=== PATIENT | female | born 1935 | race Caucasian/White ===

== ENCOUNTER 2020-04-20 17:10 | Emergency (ER) | payer MEDICARE, MEDICAID, SELFPAY ==
[2020-04-20 17:21] VITALS: BMI 29.5
--- NOTE | 2020-04-20 17:24 | W.ED.NEUROSD ---
HPI - Neuro Symptoms/Deficit General: Chief Complaint: Neuro Symptoms/Deficit Stated Complaint: CANT TALK RIGHT , SOB Time Seen by Provider: 04/20/20 17:24 History of Present Illness: HPI Narrative: 84-year-old female presents to the ER from group home with slurred speech she woke up with it this morning. They observed it throughout the day did not seem to be getting better so this evening they decided to send her around. She is also been somewhat short of breath and she is usually not really wearing oxygen at home but is requiring oxygen to get her sats from the upper 80s when she first arrived. Daughter reports she also fell a few days ago landed on her knees she has an abrasion on her left knee seen her PCP yesterday had x-rays done which were negative. She has had a slight productive cough with no fever she has some mild orthopnea as well. She is a DNR arm and reports she has a cerebral aneurysm. Onset (ago): unknown Timing confirmed by: family member Location: speech History of same: No Severity: moderate Relieving factors: none Exacerbating factors: none Context: sudden onset (Woke up with symptoms) On Anticoagulants: No Associated symptoms: Reports cough and short of breath; Deny chest pain, malaise, nausea or vomiting Treatments Prior to Arrival: none Review of Systems Const: Denies: fever(s), chills, body aches, change in appetite, fatigue or malaise ENMT: Denies: throat pain, ear or mastoid pain, nasal discharge or nasal congestion Card: Denies: chest pain, edema, dyspnea on exertion or orthopnea Resp: Denies: dyspnea, productive cough or non-productive cough GI: Denies: abdominal pain, nausea, vomiting, hematemesis, coffee ground emesis, diarrhea, constipation, bloating, hematochezia or melena : Denies: flank pain, difficulty voiding, dysuria, urinary frequency or urinary urgency Skin/Breast: Denies: rash or pruritus PFSH ED PFSH: Medical History CHF (congestive heart failure) Dyslipidemia Essential hypertension Statin intolerance TIA (transient ischemic attack) Family History Daughter Diabetes Father Cancer Mother Cancer Other CAD (coronary artery disease) Hypertension Stroke Social History Smoking and tobacco status: never smoked Household members: spouse Marital status: NIH stroke score NIHSS: Level Of Consciousness - 1a: 1 Level Of Consciousness Questions - 1b: One Correct Level Of Consciousness Commands - 1c: Both Correct Best Gaze - 2: Normal Visual Gomez - 3: No Visual Loss Facial Palsy - 4: Minor Paralysis Motor Arm Right - 5: No Drift Motor Arm Left - 5: No Drift Motor Leg Right - 6: No Drift Motor Leg Left - 6: No Drift Limb Ataxia - 7: Absent Sensory - 8: Normal Best Language - 9: Mild/Moderate Aphasia Dysarthia - 10: Mild/Moderate Dysarthia Extinction And Inattention - 11: 0 Score: Total Score: 5 Physical Exam Const: COMMON NORMALS: no acute distress GENERAL APPEARANCE: cooperative and comfortable ORIENTATION/CONSCIOUSNESS: Yes awake, Yes oriented to person, Yes oriented to place and Yes oriented to time HENMT: COMMON NORMALS: normocephalic, atraumatic, hearing grossly normal bilaterally, external ears normal, EAC's normal, TM's normal bilaterally, Normal nasal mucous membranes and turbinates present, moist oral mucous membranes and oropharynx normal HEAD & SCALP: normocephalic and atraumatic NOSE: Normal nasal mucous membranes and turbinates present EXTERNAL EAR: Yes external ears normal EXTERNAL AUDITORY CANAL: EAC's normal TYMPANIC MEMBRANE: TM's normal bilaterally Eye: COMMON NORMALS: Equal, round and reactive pupils present, EOMs intact bilaterally, conjunctivae normal and no scleral icterus CONJUNCTIVA: Yes conjunctivae normal PUPIL: Yes Equal, round and reactive pupils present Neck/C-Spine: COMMON NORMALS: full ROM, no lymphadenopathy, supple and no JVD Lymph: LYMPHATIC: no lymphadenopathy noted and no lymphedema noted Resp: COMMON NORMALS: normal respiratory effort, No retractions, No use of accessory muscles and clear to auscultation bilaterally AUSCULTATION: clear to auscultation bilaterally Cardio: COMMON NORMALS: no JVD, regular rate, regular rhythm and No murmurs present (Cardio) RATE: regular rate RHYTHM: regular rhythm GI: COMMON NORMALS: Soft to palpation and No hepatosplenomegaly present AUSCULTATION: Yes normoactive bowel sounds PALPATION: Yes Soft to palpation, No Tenderness to palpation present (GI), No Guarding due to palpation present (GI) and Yes No hepatosplenomegaly present Extremity: COMMON NORMALS: normal to inspection, capillary refill normal, no clubbing, cyanosis or edema, no calf tenderness and no pedal edema Neuro: SENSORIUM/ORIENTATION: Yes oriented to person, Yes oriented to place and Yes oriented to time Skin: COMMON NORMALS: no rashes or lesions noted GENERAL SKIN EXAM: no rashes or lesions noted Course Vital Signs: Vital signs: Vital Signs Temperature 98.6 F 04/20/20 17:25 Pulse Rate 76 04/20/20 20:51 Respiratory Rate 14 04/20/20 20:51 Blood Pressure 128/65 04/20/20 20:51 Pulse Oximetry 93 04/20/20 20:51 MDM - Neuro Symptoms/Deficit MDM Narrative: Medical decision making narrative: She is far outside of the range of any thrombolytic she has a aneurysm in her brain it was discovered previously and does not wish to do any kind of intervention. She is actually getting a little bit better after discussion with the family will go ahead and discharge her back to the group home with just aspirin daily no other changes. No further changes in her antihypertensive regimen either at this time. Lab Data: Labs: Lab Results 04/20/20 04/20/20 04/20/20 Range/Units 17:58 17:58 18:18 WBC 4.9 (4.0-10.0) 10^3/ uL RBC 3.21 L (4.1-5.3) 10^6/u L Hgb 10.3 L (11.5-15.3) g/dL Hct 33.3 L (37.0-47.0) % MCV 103.7 H (81-99) fL MCH 32.1 (28.0-34.0) pg MCHC 30.9 (30.0-36.0) g/dL RDW 13.2 (12.1-15.1) % Plt Count 151 (130-400) 10^3/c mm MPV 10.7 H (7.4-10.4) fL Neut % (Auto) 72.0 % Lymph % (Auto) 8.8 % [place] % (Auto) 13.9 % Eos % (Auto) 4.7 % Baso % (Auto) 0.2 % Neut # (Auto) 3.51 (1.8-7.7) 10^3/u L Lymph # (Auto) 0.4 L (0.8-4.8) 10^3/u L [place] # (Auto) 0.7 (0.2-0.9) 10^3/u L Eos # (Auto) 0.2 (0.0-0.8) 10^3/u L Baso # (Auto) 0.0 (0.0-0.1) 10^3/u L Nucleated RBC % (a uto) 0 % Nucleated RBCs # 0.0 /100WBC Specimen Type Arterial Sample Site Radial, right ABG pH 7.41 (7.35-7.45) ABG pCO2 45.9 H (35-45) mmHg ABG pO2 76.3 L (80.0-100.0) mmH g ABG HCO3 29.0 H (22-26) mmol/L ABG O2 Saturation 96.1 ABG Base Excess 3.7 H (-2.0-2.0) mmol/ L Nasir Test Pos A-a O2 Gradient 64.6 H (5-10) mmHg Hematocrit 31.9 L (37-47) % Hgb O2 Saturation 94.4 L (95-100) % Carboxyhemoglobin 1.7 (0.4-20.1) %THgb Methemoglobin 0.1 L (0.4-1.5) % Total Hemoglobin 10.4 L (12-16) g/dL Ionized Calcium 1.2 (1.1-1.4) mmol/L O2 Delivery Device Nc O2 Liters/Min 2.0 % FiO2 28.0 % Inspector [employer] ID ed Sodium 133 L 135.0 (136-145) mmol/L Potassium 3.7 3.7 (3.5-5.1) mmol/L Chloride 96 L (98-107) mmol/L Carbon Dioxide 29 (22-29) mmol/L Anion Gap 11.7 (5-19) BUN 19 (8-23) mg/dL Creatinine 0.9 (0.5-0.9) mg/dL Glucose 91 92.0 (65-115) mg/dL Calculated Osmolal ity 272 L (285-295) mOsm/k g Calcium 8.4 L (8.5-10.5) mg/dL Total Bilirubin 0.6 (0.15-1.2) mg/dL AST 10 (0-32) U/L ALT 8 (0-33) U/L Alkaline Phosphata se 66 (35-105) IU/L NT-Pro-B Natriuret Pep 1060 H (0-450) pg/mL Total Protein 5.8 L (6.6-8.7) g/dL Albumin 3.6 (3.5-5.2) g/dL Globulin 2.2 (1.3-4.6) g/dL Urine Color (Yellow) Urine Appearance (CLEAR) Urine pH (5-7) Ur Specific Gravit y (1.005-1.030) Urine Protein (Negative) Urine Glucose (UA) (Normal) Urine Ketones (Negative) Urine Blood (Negative) Urine Nitrate (Negative) Urine Bilirubin (NEGATIVE) Urine Urobilinogen (Negative) mg/dL Ur Leukocyte Heena ase (Negative) 04/20/20 Range/Units 19:57 WBC (4.0-10.0) 10^3/ uL RBC (4.1-5.3) 10^6/u L Hgb (11.5-15.3) g/dL Hct (37.0-47.0) % MCV (81-99) fL MCH (28.0-34.0) pg MCHC (30.0-36.0) g/dL RDW (12.1-15.1) % Plt Count (130-400) 10^3/c mm MPV (7.4-10.4) fL Neut % (Auto) % Lymph % (Auto) % [place] % (Auto) % Eos % (Auto) % Baso % (Auto) % Neut # (Auto) (1.8-7.7) 10^3/u L Lymph # (Auto) (0.8-4.8) 10^3/u L [place] # (Auto) (0.2-0.9) 10^3/u L Eos # (Auto) (0.0-0.8) 10^3/u L Baso # (Auto) (0.0-0.1) 10^3/u L Nucleated RBC % (a uto) % Nucleated RBCs # /100WBC Specimen Type Sample Site ABG pH (7.35-7.45) ABG pCO2 (35-45) mmHg ABG pO2 (80.0-100.0) mmH g ABG HCO3 (22-26) mmol/L ABG O2 Saturation ABG Base Excess (-2.0-2.0) mmol/ L Nasir Test A-a O2 Gradient (5-10) mmHg Hematocrit (37-47) % Hgb O2 Saturation (95-100) % Carboxyhemoglobin (0.4-20.1) %THgb Methemoglobin (0.4-1.5) % Total Hemoglobin (12-16) g/dL Ionized Calcium (1.1-1.4) mmol/L O2 Delivery Device O2 Liters/Min % FiO2 % [employer] ID Sodium (136-145) mmol/L Potassium (3.5-5.1) mmol/L Chloride (98-107) mmol/L Carbon Dioxide (22-29) mmol/L Anion Gap (5-19) BUN (8-23) mg/dL Creatinine (0.5-0.9) mg/dL Glucose (65-115) mg/dL Calculated Osmolal ity (285-295) mOsm/k g Calcium (8.5-10.5) mg/dL Total Bilirubin (0.15-1.2) mg/dL AST (0-32) U/L ALT (0-33) U/L Alkaline Phosphata se (35-105) IU/L NT-Pro-B Natriuret Pep (0-450) pg/mL Total Protein (6.6-8.7) g/dL Albumin (3.5-5.2) g/dL Globulin (1.3-4.6) g/dL Urine Color Yellow (Yellow) Urine Appearance Clear (CLEAR) Urine pH 5 (5-7) Ur Specific Gravit y 1.015 (1.005-1.030) Urine Protein Neg (Negative) Urine Glucose (UA) Norm (Normal) Urine Ketones Negative (Negative) Urine Blood Neg (Negative) Urine Nitrate Negative (Negative) Urine Bilirubin Neg (NEGATIVE) Urine Urobilinogen 1 H (Negative) mg/dL Ur Leukocyte Heena ase Negative (Negative) Discharge Plan Discharge Patient Disposition: Home, Self-Care Clinical Impression: Essential hypertension, TIA (transient ischemic attack) Condition: Stable Prescriptions: No Action levothyroxine 137 mcg capsule 137 mcg PO QDAY RF: 0 terazosin 2 mg capsule 2 mg PO BID RF: 0 omega-3 fatty acids 1,000 mg capsule 1,000 mg PO BID RF: 0 docusate sodium [Colace] 100 mg capsule 100 mg PO BID RF: 0 hydrocodone-acetaminophen 5-325 mg tablet 1 tab PO Q8H PRNRF: 0 pantoprazole 40 mg tablet,delayed release (DR/EC) 40 mg PO QDAY RF: 0 duloxetine 60 mg capsule,delayed release(DR/EC) 60 mg PO QDAY RF: 0 aspirin [Adult Low Dose Aspirin] 81 mg tablet,delayed release (DR/EC) 81 mg PO QDAY RF: 0 tamsulosin 0.4 mg capsule 0.4 mg PO QDAY RF: 0 furosemide 20 mg tablet 20 mg PO .QOD RF: 0 trazodone 50 mg tablet 25 mg PO .HS RF: 0 lisinopril 10 mg tablet 10 mg PO DAILY Qty: 30 RF: 4 verapamil 240 mg capsule,ext rel. pellets 24 hr 240 mg PO BID 90 Days Qty: 180 RF: 3 Discharge Orders: Discharge Order (Routine); Ordered 04/20/20 Ordered By: Silver Fried Referrals: Zaki Garcia MD [Primary Care Provider] - Discharge Diet: Usual diet Discharge Activity: Resume usual activity Activity Restrictions/Additional Instructions: Decrease the amlodipine you have been taking at home to 5 mg daily. Follow-up with Dr. Garcia within the next week. If you have any worsening symptoms return to the emergency room. Discharge Date/Time: 04/20/20 20:53 Coding Level of Care Code ED Furniture Assembler for Lo Fwd Exam Comprehensive
[2020-04-20 17:25] VITALS: BP 134/69; PULSE 70; RESP 20; TEMP 37; O2SAT 88
--- NOTE | 2020-04-20 17:42 | XRR_ITS ---
PROCEDURE INFORMATION: Exam: XR Chest, 1 View Exam date and time: 04/20/2020 5:43 PM Age: 84 years old Clinical indication: Cough; Additional info: Dyspnea/cough TECHNIQUE: Imaging protocol: XR of the chest Views: 1 view. COMPARISON: [facility] Chest 2 views 03/23/2019 12:11 PM FINDINGS: Lungs: Unremarkable. No consolidation. Pleural space: Unremarkable. No pleural effusion. No pneumothorax. Heart/Mediastinum: Unremarkable. No cardiomegaly. Bones/joints: Unremarkable. XR/XR chest 1V portable [id number] IMPRESSION: No acute findings.
--- NOTE | 2020-04-20 17:42 | CTR_ITS ---
PROCEDURE INFORMATION: Exam: CT Head Without Contrast Exam date and time: 04/20/2020 6:14 PM Age: 84 years old Clinical indication: Altered mental status/memory loss; Additional info: CVA TECHNIQUE: Imaging protocol: Computed tomography of the head without contrast. Radiation optimization: All CT scans at this facility use at least one of these dose optimization techniques: automated exposure control; mA and/or kV adjustment per patient size (includes targeted exams where dose is matched to clinical indication); or iterative reconstruction. COMPARISON: CT head wo con* [id number] 02/13/2019 5:36 PM RADIATION DOSE METRICS: Total DLP (mGy-cm): 663.2 FINDINGS: Brain: There is volume loss and periventricular low density compatible with chronic small vessel disease changes. There is no acute hemorrhage, edema or mass effect. 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 Ventricles: Normal. No ventriculomegaly. Bones/joints: Unremarkable. No acute fracture. Sinuses: Visualized sinuses are unremarkable. No fluid levels. Mastoid air cells: Visualized mastoid air cells are well aerated. Soft tissues: Unremarkable. CT/CT head wo con* [id number] IMPRESSION: 1. 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 No acute hemorrhage. 2. No acute intracranial abnormality. Unchanged exam. Radiation Dose CTDIVOL = (mGy): DLP = 663.2 (mGy-cm)
--- NOTE | 2020-04-20 17:42 | ECG_ITS ---
[facility] Test Date: 2020-04-20 Pat Name: Kaylin Hdez Department: Room: Gender: Female Sample Selector: : 1935 Requested By: Silver Motta Order Number: [id number] Margret MD: Flor Sears M.D. Measurements Intervals [place] Rate: 68 P: ID: -1 QRS: -46 QRSD: 112 T: 167 QT: 426 QTc: 454 Interpretive Statements ATRIAL FIBRILLATION LEFT ANTERIOR FASCICULAR BLOCK [QRS AXIS <= -45, QR IN I, RS IN II] MODERATE T-WAVE ABNORMALITY, CONSIDER LATERAL ISCHEMIA [-0.1+ mV T WAVE IN I/aVL/V5/V6] Compared to ECG 02/13/2019 23:49:49 Left anterior fascicular block now present T-wave abnormality now present Possible ischemia now present Left-axis deviation no longer present Intraventricular conduction delay no longer present Electronically Signed On 04-20-2020 22:49:27 CDT by Flor Sears M.D. [id number]
[2020-04-20 18:04] LABS: Basophils % 0.2 %; Eosinophils # 0.2 10^3/uL (0.0-0.8); Eosinophils % 4.7 %; Hematocrit 33.3 % (37.0-47.0); Hemoglobin 10.3 g/dL (11.5-15.3); Lymphocytes # 0.4 10^3/uL (0.8-4.8); Lymphocytes % 8.8 %; Mean Corpuscular HGB Conc 30.9 g/dL (30.0-36.0); Mean Corpuscular Hemoglobin 32.1 pg (28.0-34.0); Mean Corpuscular Volume 103.7 fL (81-99); Mean Platelet Volume 10.7 fL (7.4-10.4); Monocytes # 0.7 10^3/uL (0.2-0.9); Monocytes % 13.9 %; Neutrophils # 3.51 10^3/uL (1.8-7.7); Nucleated Red Blood Cells % 0 %; Platelet Count 151 10^3/cmm (130-400); Red Blood Count 3.21 10^6/uL (4.1-5.3); Red Cell Distribution Width 13.2 % (12.1-15.1); White Blood Count 4.9 10^3/uL (4.0-10.0)
[2020-04-20 18:05] VITALS: BP 111/63; PULSE 70; RESP 18; O2SAT 97
[2020-04-20 18:27] LABS: Alanine Aminotransferase 8 U/L (0-33); Albumin Level 3.6 g/dL (3.5-5.2); Alkaline Phosphatase 66 IU/L (35-105); Anion Gap 11.7 (5-19); Aspartate Amino Transferase 10 U/L (0-32); Blood Urea Nitrogen 19 mg/dL (8-23); Calcium 8.4 mg/dL (8.5-10.5); Carbon Dioxide 29 mmol/L (22-29); Chloride 96 mmol/L (98-107); Globulin 2.2 g/dL (1.3-4.6); Glucose 91 mg/dL (65-115); NT Pro B Type Natriuretic Pept 1060 pg/mL (0-450); Osmolality Calculated 272 mOsm/kg (285-295); Potassium 3.7 mmol/L (3.5-5.1); Sodium 133 mmol/L (136-145); Total Bilirubin 0.6 mg/dL (0.15-1.2); Total Protein 5.8 g/dL (6.6-8.7)
[2020-04-20 18:30] LABS: ABG PCO2 45.9 mmHg (35-45); ABG PH Result 7.41 (7.35-7.45); Alveolar-Arterial Oxygen Gradi 64.6 mmHg (5-10); Arterial Blood Gas Hematocrit 31.9 % (37-47); Base Excess ABG 3.7 mmol/L (-2.0-2.0); Blood Gas Allen Test Pos; Blood Gas Sample Site Radial, right; Blood Gas Sample Type Arterial; Carboxyhemoglobin 1.7 %THgb (0.4-20.1); HGB O2 Sat 94.4 % (95-100); Ionized Calcium Level - ABG 1.2 mmol/L (1.1-1.4); Methemoglobin 0.1 % (0.4-1.5); Oxygen Device NC; Oxygen Saturation ABG 96.1; PO2 ABG 76.3 mmHg (80.0-100.0); Potassium Level - ABG 3.7 mmol/L (3.5-5.0); Total Hemoglobin 10.4 g/dL (12-16)
[2020-04-20 20:00] LABS: Add Urine Microscopic? NO
[2020-04-20 20:11] LABS: Urine Color Yellow (Yellow)
[2020-04-20 20:12] LABS: Bilirubin Urine Neg (NEGATIVE); Blood Urine Neg (Negative); Glucose Urine UA Norm (Normal); Ketones Urine Negative (Negative); Leukocyte Esterase Urine Negative (Negative); Nitrate Urine Negative (Negative); Protein Urine Neg (Negative); Specific Gravity, Urine 1.015 (1.005-1.030); Urine Appearance Clear (CLEAR); Urobilinogen Urine 1 mg/dL (Negative); pH Urine 5 (5-7)
[2020-04-20 20:51] VITALS: BP 128/65; PULSE 76; RESP 14; O2SAT 93
== END 2020-04-20 20:53 | disposition home or self-care (01) ==
PROVIDERS: Emergency Provider Family Medicine; PCP Family Medicine
DX: G45.9 Transient cerebral ischemic attack, unspecified (principal); Z79.82 Long term (current) use of aspirin; I11.0 Hypertensive heart disease with heart failure; I50.9 Heart failure, unspecified; E78.5 Hyperlipidemia, unspecified; Z86.73 Personal history of transient ischemic attack (TIA), and cerebral infarction without residual deficits
CPT/HCPCS: 12345; 36600; 70450; 71045; 80051; 80053; 81003; 82810; 83880; 83986; 85025; 93005; 99283

== ENCOUNTER → 2021-06-30 14:18 | Outpatient (BNVA) | payer MEDICARE, MEDICAID, SELFPAY | PROVIDERS: PCP Family Medicine; Referring Provider Family Medicine; Visit Provider Nurse Practitioner Family | DX: R35.0 Frequency of micturition (principal); N39.46 Mixed incontinence | CPT/HCPCS: 81003 ==

== ENCOUNTER → 2021-08-26 14:35 | Outpatient (BNVA) | payer MEDICARE, MEDICAID, SELFPAY | PROVIDERS: PCP Family Medicine; Visit Provider Nurse Practitioner Family | DX: N39.46 Mixed incontinence (principal) | CPT/HCPCS: 81003 ==

== ENCOUNTER → 2021-12-04 14:57 | Outpatient (BNVA) | payer MEDICARE, MEDICAID, SELFPAY | PROVIDERS: PCP Family Medicine; Visit Provider Internal Medicine Cardiovascular Disease | DX: I48.21 Permanent atrial fibrillation (principal); I50.32 Chronic diastolic (congestive) heart failure; I11.0 Hypertensive heart disease with heart failure; G45.9 Transient cerebral ischemic attack, unspecified; E78.5 Hyperlipidemia, unspecified | CPT/HCPCS: 99214 ==

== ENCOUNTER 2022-04-08 08:28 | Inpatient (IN) | payer MEDICARE, MEDICAID, SELFPAY ==
[2022-04-08] VITALS (13 sets, daily range): BP systolic 101–192; BP diastolic 59–101; PULSE 62–83; RESP 16–17; TEMP 36.5–36.7; O2SAT 91–100; BMI 30.2
--- NOTE | 2022-04-08 09:20 | ED_ITS ---
HPI - GI Bleed General: Chief complaint: GI Bleed Stated complaint: rectal bleeding Time Seen by Provider: 04/08/22 09:10 Source: patient Mode of arrival: ambulatory Limitations: no limitations History of Present Illness: Patient is a nice 86-year-old female with a hx of atrial fib, CHF, dyslipidemia, hiatal hernia/GERD, TIA, HTN and hypothyrodism, who presents to ED today along with her daughter for concerns of hematochezia. Daughter states bleeding began around 2 AM this morning. She states her bedside commode this morning was caked maroon-colored clotted blood. Patient tells me she is having some abdominal cramping. She reports one previous incident of rectal bleeding in which she states she was admitted to the hospital and had a colonoscopy performed. According to daughter colonoscopy was normal. They attributed the bleeding to anticoagulation that she was on at the time. Patient is no longer on anticoagulation. She denies NSAID use. Patient is on a PPI daily for GERD like symptoms related to a hiatal hernia (patient later tells me she does not take this consistently). Patient has not been running fevers. She does feel little lightheaded and dizzy although daughter states she will intermittently feel this way. complaint: gross hematochezia Onset (ago): hour(s) Context: history of GI bleed Associated symptoms: Reports abdominal pain (bloating per patient); Denies chills, fever(s), headache(s), malaise, nausea, rash or vomiting Treatments Prior to Arrival: none Review of Systems Const: Denies: fever(s), chills, body aches, fatigue or malaise Card: Denies: chest pain Resp: Denies: dyspnea GI: Reports: abdominal pain (bloating per patient) and hematochezia; Denies: nausea, vomiting, diarrhea, pain on defecation, rectal pain, rectal swelling, rectal itching or melena : Denies: flank pain or dysuria Musc: Denies: neck pain, back pain, extremity pain or joint pain Skin/Breast: Denies: rash Neuro: Denies: headache(s), numbness in extremities, weakness in extremities or sensory changes PFS ED PFSH: Medical History Asthma Atrial fibrillation CHF (congestive heart failure) Dyslipidemia Essential hypertension Hypothyroidism Mixed stress and urge urinary incontinence Statin intolerance TIA (transient ischemic attack) Surgical History S/P cholecystectomy S/P hysterectomy S/P lumpectomy of breast Family History Daughter Diabetes Father Cancer Mother Cancer Other CAD (coronary artery disease) Hypertension Stroke Social History Smoking and tobacco status: never smoked Alcohol intake: never Household members: spouse Marital status: Current occupational status: retired Physical Exam Const: COMMON NORMALS: no acute distress, average body habitus, patient oriented x3, no limitations, alert and well nourished GENERAL APPEARANCE: cooperative ORIENTATION/CONSCIOUSNESS: Yes awake, Yes oriented to person, Yes oriented to place and Yes oriented to time HENMT: COMMON NORMALS: normocephalic and atraumatic HEAD & SCALP: normal to inspection, normocephalic and atraumatic Resp: COMMON NORMALS: normal respiratory effort and clear to auscultation bilaterally AUSCULTATION: clear to auscultation bilaterally Cardio: COMMON NORMALS: regular rate and regular rhythm RATE: regular rate RHYTHM: regular rhythm GI: COMMON NORMALS: Normal to inspection, nondistended, normoactive bowel sounds present, Soft to palpation, non-tender, No hepatosplenomegaly present and no masses AUSCULTATION: Yes normoactive bowel sounds PALPATION: Yes Soft to palpation and Yes No hepatosplenomegaly present RECTAL EXAM: Abnormal stool present maroon stool and heme positive stool OTHER: pts entire rectum area is caked with mixed dried/fresh maroon colored blood : COMMON NORMALS: Yes no CVA tenderness BLADDER/KIDNEY EXAM: Yes no CVA tenderness Back/Pelvis: COMMON NORMALS: no CVA tenderness Extremity: COMMON NORMALS: normal to inspection GENERAL: Yes normal exam except as noted Neuro: JOSEPHINE COMA SCALE: document GCS findings Josephine coma scale eye opening: Spontaneous [place] coma scale verbal response: Orientated Josephine coma scale motor response: Obey commands Josephine coma scale total score: 15 COMMON NORMALS: patient oriented x3, moves all extremities, no focal motor deficits and no sensory deficits noted SENSORIUM/ORIENTATION: Yes alert, Yes oriented to person, Yes oriented to place and Yes oriented to time Skin: COMMON NORMALS: no rashes or lesions noted GENERAL SKIN EXAM: no rashes or lesions noted Procedures Stool Hemoccult Procedural Steps Taken: stool placed in appropriate test area, developer placed on stool and control areas and controls appropriately positive and negative Hemoccult result: positive Course Consultations: Consultation #1: Dr. Gamboa-recommends Cipro/Flagyl, fluid resuscitation, monitoring of H/H; is graciously willing to consult on patient while in hospital if needed Consultation #2: Dr. Garrison-accepts patient to obs Vital Signs: Vital signs: Vital Signs Temperature 98 F 04/08/22 08:48 Pulse Rate 78 04/08/22 11:00 Respiratory Rate 16 04/08/22 08:48 Blood Pressure 118/64 04/08/22 11:00 Pulse Oximetry 96 04/08/22 11:00 MDM - GI Bleed Medical Decision Making Patient is an 86-year-old female here with gross hematochezia. Her hemoglobin is normal at this time at 11.7. She is not tachycardic however she does have positive orthostatics with her systolic pressures dropping from 150s to 110s. She does complain of lightheadedness and dizziness. CT scan showing sigmoid diverticulosis as well as circumferential thickening involving her rectum that could be due to proctitis or possible neoplasm. Think with the amount of blood noted by daughter as well as the amount confirmed on exam I think the best course would be an admit to observation with careful monitoring of her H&H. Spoken to Dr. Gamboa who would be more than happy to consult on patient if needed. He recommended IV Cipro and Flagyl at this time for the possible proctitis. Spoke to Dr. Garrison who will admit. Lab Data : 04/08/22 09:32 04/08/22 09:32 Radiology Impressions Abdomen/Pelvis CT 04/08/22 09:33 IMPRESSION: 1. Sigmoid diverticulosis. No evidence of acute diverticulitis. 2. Circumferential soft tissue thickening with mild induration involving the rectum may be due to proctitis but neoplasm not excluded. Recommend follow-up sigmoidoscopy to exclude neoplasm. No definite visualized mass on this noncontrast examination. 3. No evidence of small or large bowel obstruction. 4. Stable supraumbilical fat-containing hernia. Small amount of adjacent fluid. 5. Diffuse body wall anasarca. 6. Bulky retrocrural and upper abdominal calcifications unchanged from prior examinations. Laboratory Results WBC 5.7 10^3/uL (4.0-10.0) 04/08/22 09:32 RBC 3.62 10^6/uL (4.1-5.3) L 04/08/22 09:32 Hgb 11.7 g/dL (11.5-15.3) 04/08/22 09:32 Hct 36.3 % (37.0-47.0) L 04/08/22 09:32 MCV 100.3 fl (81-99) H 04/08/22 09:32 MCH 32.3 pg (28.0-34.0) 04/08/22 09:32 MCHC 32.2 g/dL (30.0-36.0) 04/08/22 09:32 RDW 14.1 % (12.1-15.1) 04/08/22 09:32 Plt Count 187 10^3/cmm (130-400) 04/08/22 09:32 MPV 10.6 fL (7.4-10.4) H 04/08/22 09:32 Neut % (Auto) 74.0 % 04/08/22 09:32 Lymph % (Auto) 14.0 % 04/08/22 09:32 [place] % (Auto) 7.2 % 04/08/22 09:32 Eos % (Auto) 3.9 % 04/08/22 09:32 Baso % (Auto) 0.7 % 04/08/22 09:32 Neut # (Auto) 4.22 10^3/uL (1.8-7.7) 04/08/22 09:32 Lymph # (Auto) 0.8 10^3/uL (0.8-4.8) 04/08/22 09:32 [place] # (Auto) 0.4 10^3/uL (0.2-0.9) 04/08/22 09:32 Eos # (Auto) 0.2 10^3/uL (0.0-0.8) 04/08/22 09:32 Baso # (Auto) 0.0 10^3/uL (0.0-0.1) 04/08/22 09:32 Nucleated RBC % (auto) 0 % 04/08/22 09:32 Nucleated RBCs # 0.0 /100WBC 04/08/22 09:32 PT 14.20 SECONDS (12.1-14.9) 04/08/22 09:32 INR 1.07 (0.8-1.2) 04/08/22 09:32 APTT 30.1 SECONDS (23.9-36.7) 04/08/22 09:32 Sodium 137 mmol/L (136-145) 04/08/22 09:32 Potassium 3.7 mmol/L (3.5-5.1) 04/08/22 09:32 Chloride 98 mmol/L (98-107) 04/08/22 09:32 Carbon Dioxide 29 mmol/L (22-29) 04/08/22 09:32 Anion Gap 13.7 (5-19) 04/08/22 09:32 BUN 19 mg/dL (8-23) 04/08/22 09:32 Creatinine 0.6 mg/dL (0.5-0.9) 04/08/22 09:32 GFR Calculation Not Reportable 04/08/22 09:32 Glucose 90 mg/dL (65-115) 04/08/22 09:32 Calculated Osmolality 286 mOsm/kg (285-295) 04/08/22 09:32 Calcium 8.7 mg/dL (8.5-10.5) 04/08/22 09:32 Total Bilirubin 0.3 mg/dL (0.15-1.2) 04/08/22 09:32 AST 12 U/L (0-32) 04/08/22 09:32 ALT 8 U/L (0-33) 04/08/22 09:32 Alkaline Phosphatase 54 IU/L (35-105) 04/08/22 09:32 Total Protein 5.7 g/dL (6.6-8.7) L 04/08/22 09:32 Albumin 3.7 g/dL (3.5-5.2) 04/08/22 09:32 Globulin 2.0 g/dL (1.3-4.6) 04/08/22 09:32 Blood Type B Positive 04/08/22 09:32 Rho(D) Type Positive 04/08/22 09:32 Antibody Screen Negative 04/08/22 09:32 Discharge Plan Discharge Patient Disposition: Placed in Observation Clinical Impression: Hematochezia, Proctitis, Sigmoid diverticulosis Coding Level of Care Code ED Echocardiography Radiology Technologist for Lo Fwd Exam Comprehensive
--- NOTE | 2022-04-08 09:33 | CT_ITS ---
WS: [id number] CT ABDOMEN PELVIS TECHNIQUE: Noncontrast CT of the abdomen and pelvis with coronal and sagittal reformatted images. CLINICAL INFORMATION: rectal bleeding COMPARISON: None. DLP: 933.[address] scans at [facility] use at least one of these dose optimization techniques: automated e xposure control; mA and/or kV adjustment per patient size (includes targeted exams where dose is matc hed to clinical indication); or iterative reconstruction. FINDINGS:Sigmoid diverticulosis. No evidence of acute diverticulitis. No evidence of high-grade small or obstruction. No free fluid in the abdomen or pelvis. Circumferential soft tissue thickening with mild induration involving the rectum may be due to proctitis but neoplasm not excluded. Recommend fol low-up sigmoidoscopy to exclude neoplasm. No definite visualized mass on this noncontrast examinatio n. Stable bulky calcifications retrocrural and upper abdomen at the GE junction unchanged. Calcific gran uloma RIGHT lower lobe. Lung bases are well aerated. Normal noncontrast liver. Splenic granulomas. Ad renal glands are normal. No hydronephrosis in either kidney. Bilateral renal cortical atrophy. RIGHT renal cysts. Fatty atrophy of the pancreas. Normal caliber abdominal aorta. Aortic calcification. Diffuse body wall anasarca. Fat-containing supr aumbilical hernia with a small amount of adjacent fluid. No herniated bowel. Pedicle screw fixation L4-L5 with interconnecting rods. Grade 1 anterolisthesis L4 on L5 and L5 on S1 is stable. Advanced spondylitic changes lumbar spine. LEFT gluteus intramuscular lipoma similar to p revious. CT/CT abdomen pelvis wo con [id number] IMPRESSION: 1. Sigmoid diverticulosis. No evidence of acute diverticulitis. 2. Circumferential soft tissue thickening with mild induration involving the r ectum may be due to proctitis but neoplasm not excluded. Recommend follow-up si gmoidoscopy to exclude neoplasm. No definite visualized mass on this noncontras t examination. 3. No evidence of small or large bowel obstruction. 4. Stable supraumbilical fat-containing hernia. Small amount of adjacent fluid . 5. Diffuse body wall anasarca. 6. Bulky retrocrural and upper abdominal calcifications unchanged from prior e xaminations.
[2022-04-08 09:48] LABS: Basophils % 0.7 %; Eosinophils # 0.2 10^3/uL (0.0-0.8); Eosinophils % 3.9 %; Hematocrit 36.3 % (37.0-47.0); Hemoglobin 11.7 g/dL (11.5-15.3); Lymphocytes # 0.8 10^3/uL (0.8-4.8); Mean Corpuscular HGB Conc 32.2 g/dL (30.0-36.0); Mean Corpuscular Hemoglobin 32.3 pg (28.0-34.0); Mean Corpuscular Volume 100.3 fl (81-99); Mean Platelet Volume 10.6 fL (7.4-10.4); Monocytes # 0.4 10^3/uL (0.2-0.9); Monocytes % 7.2 %; Neutrophils # 4.22 10^3/uL (1.8-7.7); Nucleated Red Blood Cells % 0 %; Platelet Count 187 10^3/cmm (130-400); Red Blood Count 3.62 10^6/uL (4.1-5.3); Red Cell Distribution Width 14.1 % (12.1-15.1); White Blood Count 5.7 10^3/uL (4.0-10.0)
[2022-04-08] MEDS: pantoprazole 40 mg SDV IVP ×2 (09:59→17:42)
[2022-04-08 10:06] LABS: INR 1.07 (0.8-1.2); Partial Thromboplastin Time 30.1 SECONDS (23.9-36.7)
[2022-04-08 10:10] LABS: Alanine Aminotransferase 8 U/L (0-33); Albumin Level 3.7 g/dL (3.5-5.2); Alkaline Phosphatase 54 IU/L (35-105); Anion Gap 13.7 (5-19); Aspartate Amino Transferase 12 U/L (0-32); Blood Urea Nitrogen 19 mg/dL (8-23); Calcium 8.7 mg/dL (8.5-10.5); Carbon Dioxide 29 mmol/L (22-29); Chloride 98 mmol/L (98-107); Glucose 90 mg/dL (65-115); Osmolality Calculated 286 mOsm/kg (285-295); Potassium 3.7 mmol/L (3.5-5.1); Sodium 137 mmol/L (136-145); Total Bilirubin 0.3 mg/dL (0.15-1.2); Total Protein 5.7 g/dL (6.6-8.7)
--- NOTE | 2022-04-08 12:29 | PM.HP ---
Providers/Chief Complaint Primary Care Provider: Zaki Garcia MD Chief Complaint: rectal bleeding History of Present Illness Kaylin Hdez is a 86 year old female with PMhx includes permanent atrial fibrillation not on anticoagulation given recurrent falls, hypertension, hypothyroidism, GERD, dyslipidemia, h/o statin intolerance and incidentally discovered basilar artery aneurysm after fall and h/o CVA.Came in today with c/o maroon-colored clotted blood in stool noted today she is also having some abdominal discomfort, deny any nausea, vomiting, hematuria, epistaxsis. Pertinent Imaging studies done in ER C.T Abdomen and Pelvis without contrast : Sigmoid diverticulosis. No evidence of acute diverticulitis. Circumferential soft tissue thickening with mild induration involving the rectum may be due to proctitis but neoplasm not excluded. Recommend follow-up sigmoidoscopy to exclude neoplasm. No definite visualized mass on this noncontrast examination. Pertinent Labs : WBC : 5.7 H&H: 11/36 , PLT : 187 , Na : 137 , k: 3.7 BUN/SCR: 19/0.6 CEA : 2.7 O/H V : Was Positive In ER. Review of Systems General: Reports: 10 or more systems reviewed and unremarkable except in HPI and below Const: Denies: fever(s), chills, body aches, change in appetite or diaphoresis Card: Denies: palpitations, edema, swelling of feet/ankles, dyspnea on exertion, orthopnea or leg pain with exertion Resp: Denies: dyspnea, productive cough, wheezing or pain on inspiration GI: Reports: abdominal pain; Denies: nausea, vomiting, diarrhea or constipation : Denies: flank pain Musc: Denies: back pain, extremity pain or extremity swelling Neuro: Denies: headache(s), difficulty walking or confusion Medications/Allergies Home Medications Medication Instructions Recorded Confirmed Last Taken Type aspirin 81 mg tablet,delayed 81 mg PO QDAY 10/19/19 04/08/22 Unknown History release (Adult Low Dose Aspirin) docusate sodium 100 mg capsule 100 mg PO DAILY PRN 10/19/19 04/08/22 Unknown History (Colace) duloxetine 60 mg capsule,delayed 60 mg PO QDAY 10/19/19 04/08/22 Unknown History release hydrocodone 5 mg-acetaminophen 325 1 tab PO BID PRN 10/19/19 04/08/22 Unknown History mg tablet levothyroxine 137 mcg capsule 137 mcg PO QDAY 10/19/19 04/08/22 Unknown History omega-3 fatty acids 1,000 mg 1,000 mg PO BID 10/19/19 04/08/22 Unknown History capsule pantoprazole 40 mg tablet,delayed 40 mg PO BID 10/19/19 04/08/22 Unknown History release terazosin 2 mg capsule 2 mg PO BID cap 10/19/19 04/08/22 Unknown History furosemide 20 mg tablet 20 mg PO DAILY tab 04/10/20 04/08/22 Unknown History lisinopril 5 mg tablet 5 mg PO DAILY 07/25/20 04/08/22 Unknown History ascorbate calcium (vitamin C) 500 1 g PO DAILY tab 12/04/21 04/08/22 Unknown History mg tablet verapamil 240 mg 24 hr 240 mg PO BID #180 cap 12/23/21 04/08/22 Unknown Rx capsule,extended release buspirone 30 mg tablet 30 mg PO BID 04/08/22 04/08/22 Unknown History diphenhydramine 25 1 - 2 tab PO BEDTIME 04/08/22 04/08/22 Unknown History mg-acetaminophen 500 mg tablet (Tylenol PM Extra Strength) multivitamin-ferrous 1 tab PO DAILY 04/08/22 04/08/22 Unknown History fumarate-folic acid 18 mg-400 mcg tablet (Centrum Women) oxybutynin chloride 5 mg tablet 5 mg PO DAILY 04/08/22 04/08/22 Unknown History trazodone 50 mg tablet 50 mg PO DAILY 04/08/22 04/08/22 Unknown History Allergies Allergy/AdvReac Type Severity Reaction Status Date / Time zolpidem [From Ambien] Allergy Severe Unknown Verified 04/08/22 11:43 propoxyphene [From Darvon] Allergy Unknown Unknown Verified 04/08/22 11:43 PFSH Acute PFSH: Medical History Asthma Atrial fibrillation CHF (congestive heart failure) Dyslipidemia Essential hypertension Hypothyroidism Mixed stress and urge urinary incontinence Statin intolerance TIA (transient ischemic attack) Surgical History S/P cholecystectomy S/P hysterectomy S/P lumpectomy of breast Family History Daughter Diabetes Father Cancer Mother Cancer Other CAD (coronary artery disease) Hypertension Stroke Social History Smoking and tobacco status: never smoked Alcohol intake: never Household members: spouse Marital status: Current occupational status: retired Vitals/I&O/Wt Last Vital Signs Temp 98 F 04/08/22 08:48 Pulse 78 04/08/22 11:00 Resp 16 04/08/22 08:48 BP 118/64 04/08/22 11:00 Pulse Ox 96 04/08/22 11:00 Weight last 48 hrs Weight 68.039 kg Physical Exam Const: COMMON NORMALS: patient oriented x3 HENMT: COMMON NORMALS: normocephalic and atraumatic HEAD & SCALP: normocephalic and atraumatic Chest: CHEST: Yes Symmetrical chest wall rise Resp: COMMON NORMALS: normal respiratory effort, No retractions, No use of accessory muscles and clear to auscultation bilaterally EFFORT & INSPECTION: Yes symmetric chest movement AUSCULTATION: clear to auscultation bilaterally Cardio: COMMON NORMALS: regular rate, regular rhythm, S1 normal heart sound present, S2 normal heart sound present, No gallops present (Cardio), No murmurs present (Cardio), No rub (Cardio) and Peripheral pulses 2+ throughout RATE: regular rate RHYTHM: regular rhythm HEART SOUNDS: S1 normal heart sound present and S2 normal heart sound present PERIPHERAL PULSES: Peripheral pulses 2+ throughout GI: COMMON NORMALS: Normal to inspection, nondistended, normoactive bowel sounds present, Soft to palpation, non-tender, No hepatosplenomegaly present and no masses AUSCULTATION: Yes normoactive bowel sounds PALPATION: Yes Soft to palpation and Yes No hepatosplenomegaly present RECTAL EXAM: deferred Extremity: COMMON NORMALS: no clubbing, cyanosis or edema and no pedal edema Neuro: COMMON NORMALS: patient oriented x3 Data : 04/08/22 09:32 04/08/22 09:32 A&P Assessment and plan (1) Proctitis: Status: Acute (2) Sigmoid diverticulosis: Status: Acute (3) Atrial fibrillation: Status: Acute Qualifiers: Atrial fibrillation type: permanent Qualified Code(s): I48.21 - Permanent atrial fibrillation (4) TIA (transient ischemic attack): Status: Acute (5) CHF (congestive heart failure): Status: Acute Qualifiers: Heart failure chronicity: chronic Heart failure type: diastolic Qualified Code(s): I50.32 - Chronic diastolic (congestive) heart failure (6) Essential hypertension: Status: Acute (7) Hematochezia: Status: Acute Plan 86 year old female with PMhx includes permanent atrial fibrillation not on anticoagulation given recurrent falls, hypertension, hypothyroidism, GERD, dyslipidemia, h/o statin intolerance and incidentally discovered basilar artery aneurysm after fall and h/o CVA CHF.Came in today with c/o maroon-colored clotted blood in stool noted today she is also having some abdominal discomfort, deny any nausea, vomiting, hematuria, epistaxsis. Assessment : G.I Bleed Proctitis?but neoplasm not excluded Sigmoid diverticulosis atrial fibrillation not on anticoagulation Hypertension, Hypothyroidism, GERD, dyslipidemia H/O CVA CHF PLan Monitor H&H Continue Protonix 40 mg I.V daily Gentle I.V Hydration Monitor Orthostatic Vital signs Continue Zosyn for Now Likely surgery follow up as outpatient for possible sigmoidoscopy Continue Levothyroxine Code Status : Attestations Medical Necessity Statement*: Patient needs to be in hospital for the management of G/I Bleed. Anticipated LOS greater then 2 minights. Time Spent in Patient Care: Greater than 35 minutes (>than 50% of time spent in counselling and/or direct pt care on unit). Coding Level of Care Code Acute Foreign Languages Department Chair for [facility] Fwd Exam Detailed Diagnoses Proctitis K62.89 Sigmoid diverticulosis K57.30 Atrial fibrillation I48.21 Atrial fibrillation type: permanent TIA (transient ischemic attack) G45.9 CHF (congestive heart failure) I50.32 Heart failure chronicity: chronic Heart failure type: diastolic Essential hypertension I10 Hematochezia K92.1
[2022-04-08] MEDS: ciprofloxacin 400 MG/200 ML PREMIX 200 MG IV (12:45)
[2022-04-08] MEDS: sodium chloride 0.9% 500 ML IV (12:49)
[2022-04-08 13:46] LABS: Carcinoembryonic Antigen 2.1 ng/mL (0.0-4.7)
[2022-04-08] MEDS: metroNIDAZOLE IV 500 MG/100 ML PREMIX 100 MG IV (13:55)
[2022-04-08] MEDS: piperacillin-tazobactam 3.375 GM in sodium chloride 0.9% (plus) 50 ML IV (17:40)
[2022-04-08] MEDS: BuSPIRONE 10 mg Tablet 30 MG PO (17:42)
[2022-04-08] MEDS: sodium chloride 0.9% 1,000 ML 75 ML IV (17:42)
[2022-04-08] MEDS: verapamil ER 240 mg Tablet PO (18:27)
[2022-04-08 19:54] LABS: Hematocrit 35.3 % (37.0-47.0); Hemoglobin 11.4 g/dL (11.5-15.3)
[2022-04-08] MEDS: acetaminophen 325 mg Tablet 650 MG PO (20:50)
[2022-04-09] VITALS: BP 158/76; PULSE 79; RESP 17; O2SAT 91
[2022-04-09] MEDS: piperacillin-tazobactam 3.375 GM in sodium chloride 0.9% (plus) 50 ML IV (01:54)
[2022-04-09 04:00] VITALS: BP 178/81; PULSE 85; RESP 17; TEMP 36.5; O2SAT 90
[2022-04-09] MEDS: sodium chloride 0.9% 1,000 ML 75 ML IV (05:49)
[2022-04-09] MEDS: acetaminophen 325 mg Tablet 650 MG PO (05:49)
[2022-04-09 05:59] LABS: Basophils % 0.5 %; Eosinophils # 0.2 10^3/uL (0.0-0.8); Eosinophils % 5.6 %; Hematocrit 31.6 % (37.0-47.0); Hemoglobin 10.5 g/dL (11.5-15.3); Lymphocytes # 0.8 10^3/uL (0.8-4.8); Lymphocytes % 20.2 %; Mean Corpuscular HGB Conc 33.2 g/dL (30.0-36.0); Mean Corpuscular Hemoglobin 32.1 pg (28.0-34.0); Mean Corpuscular Volume 96.6 fl (81-99); Mean Platelet Volume 10.6 fL (7.4-10.4); Monocytes # 0.4 10^3/uL (0.2-0.9); Monocytes % 10.2 %; Neutrophils # 2.59 10^3/uL (1.8-7.7); Neutrophils % 63.3 %; Nucleated Red Blood Cells % 0 %; Platelet Count 163 10^3/cmm (130-400); Red Blood Count 3.27 10^6/uL (4.1-5.3); Red Cell Distribution Width 13.9 % (12.1-15.1); White Blood Count 4.1 10^3/uL (4.0-10.0)
[2022-04-09 06:14] LABS: Anion Gap 12.4 (5-19); Blood Urea Nitrogen 15 mg/dL (8-23); Calcium 8.1 mg/dL (8.5-10.5); Carbon Dioxide 27 mmol/L (22-29); Chloride 105 mmol/L (98-107); Glucose 83 mg/dL (65-115); Magnesium 1.7 mg/dL (1.7-2.3); Osmolality Calculated 292 mOsm/kg (285-295); Potassium 3.4 mmol/L (3.5-5.1); Sodium 141 mmol/L (136-145)
[2022-04-09] MEDS: potassium chloride ER 20 mEq Tablet PO (06:48)
[2022-04-09 07:53] VITALS: BP 188/85; PULSE 87; RESP 16; TEMP 36.7; O2SAT 91
[2022-04-09 08:00] VITALS: O2SAT 94
[2022-04-09] MEDS: lisinopril 5 mg Tablet PO (08:12)
[2022-04-09] MEDS: BuSPIRONE 10 mg Tablet 30 MG PO (08:12)
[2022-04-09] MEDS: levothyroxine 137 mcg Tablet PO (08:12)
[2022-04-09] MEDS: verapamil ER 240 mg Tablet PO (08:18)
--- NOTE | 2022-04-09 09:01 | P.DS_ITS ---
Discharge Providers Date of Admission: 04/08/22 12:28 Date of Discharge: April 09, 2022 Attending Provider at Admission: Giulia Irvin MD Attending Provider at Discharge: Giulia Irvni MD Primary Care Provider: Zaki Garcia MD Diagnoses at Discharge Discharge Diagnosis (1) Proctitis: Status: Acute (2) Sigmoid diverticulosis: Status: Acute (3) Atrial fibrillation: Status: Acute Qualifiers: Atrial fibrillation type: permanent Qualified Code(s): I48.21 - Permanent atrial fibrillation (4) TIA (transient ischemic attack): Status: Acute (5) CHF (congestive heart failure): Status: Acute Qualifiers: Heart failure chronicity: chronic Heart failure type: diastolic Qualified Code(s): I50.32 - Chronic diastolic (congestive) heart failure (6) Essential hypertension: Status: Acute (7) Hematochezia: Status: Acute Reason for Visit Reason for Visit: rectal bleeding Hospital Course Hospital Course HPI : Kaylin Hdez is a 86 year old female with?PMhx includes permanent atrial fibrillation not on anticoagulation given recurrent falls, hypertension, hypothyroidism, GERD, dyslipidemia, h/o statin intolerance and incidentally discovered basilar artery aneurysm after fall and h/o CVA.Came in today with c/o?maroon-colored clotted blood in stool noted today she is also having some abdominal discomfort, deny any nausea, vomiting, hematuria, epistaxsis. Pertinent Imaging studies done in ER C.T Abdomen and Pelvis without contrast : Sigmoid diverticulosis. No evidence of acute diverticulitis. Circumferential soft tissue thickening with mild induration involving the rectum may be due to proctitis but neoplasm not excluded. Recommend follow-up sigmoidoscopy to exclude neoplasm. No definite visualized mass on this noncontrast examination. Pertinent Labs : WBC : 5.7 H&H: 11/36 , PLT : 187 , Na : 137 , k: 3.7 BUN/SCR: 19/0.6 CEA : 2.7 O/H V : Was Positive In ER. Hospital course: She was admitted for the management of LGI bleed: H&H was monitored: No transfusion was needed: She was kept on Protonix as well as, IV fluids. CT abdomen and pelvis without contrast was suggestive of Proctitis?but neoplasm not excluded: She was kept on IV antibiotics, she has been discharged on metronidazole as well as levofloxacin for 7 days. She has been asked to follow- up with surgery as an outpatient for possible sigmoidoscopy/colonoscopy:She has requested for Dr. Riggs. She will need to follow surgery in a month. At the time of discharge H&H was stable, patient had no further rectal bleeding. She was hemodynamically stable. She is being discharged home in stable condition. Physical Exam Const: COMMON NORMALS: patient oriented x3 HENMT: COMMON NORMALS: normocephalic and atraumatic HEAD & SCALP: normocephalic and atraumatic Chest: CHEST: Yes Symmetrical chest wall rise Resp: COMMON NORMALS: normal respiratory effort, No retractions, No use of accessory muscles and clear to auscultation bilaterally EFFORT & INSPECTION: Yes symmetric chest movement AUSCULTATION: clear to auscultation bilaterally Cardio: COMMON NORMALS: regular rate, regular rhythm, S1 normal heart sound present, S2 normal heart sound present, No gallops present (Cardio), No murmurs present (Cardio), No rub (Cardio) and Peripheral pulses 2+ throughout RATE: regular rate RHYTHM: regular rhythm HEART SOUNDS: S1 normal heart sound present and S2 normal heart sound present PERIPHERAL PULSES: Peripheral pulses 2+ throughout GI: COMMON NORMALS: Normal to inspection, nondistended, normoactive bowel sounds present, Soft to palpation, non-tender, No hepatosplenomegaly present and no masses AUSCULTATION: Yes normoactive bowel sounds PALPATION: Yes Soft to palpation and Yes No hepatosplenomegaly present RECTAL EXAM: deferred Extremity: COMMON NORMALS: no clubbing, cyanosis or edema and no pedal edema Neuro: COMMON NORMALS: patient oriented x3 Discharge Data Studies Completed and Pending Completed Studies During Hospitalization Category Date Time Status CT abdomen pelvis wo con [id number] Urgent Cat Scan 04/08/22 09:33 Completed Pending at discharge Category Date Time Status Basic Metabolic Panel AM LABS Lab 04/10/22 04:00 Ordered Basic Metabolic Panel AM LABS Lab 04/11/22 04:00 Ordered Complete Blood Count w/Auto AM LABS Lab 04/10/22 04:00 Ordered Complete Blood Count w/Auto AM LABS Lab 04/11/22 04:00 Ordered Radiology Impressions Abdomen/Pelvis CT 04/08/22 09:33 IMPRESSION: 1. Sigmoid diverticulosis. No evidence of acute diverticulitis. 2. Circumferential soft tissue thickening with mild induration involving the rectum may be due to proctitis but neoplasm not excluded. Recommend follow-up sigmoidoscopy to exclude neoplasm. No definite visualized mass on this noncontrast examination. 3. No evidence of small or large bowel obstruction. 4. Stable supraumbilical fat-containing hernia. Small amount of adjacent fluid. 5. Diffuse body wall anasarca. 6. Bulky retrocrural and upper abdominal calcifications unchanged from prior examinations. Laboratory Results WBC 4.1 10^3/uL (4.0-10.0) 04/09/22 05:29 RBC 3.27 10^6/uL (4.1-5.3) L 04/09/22 05:29 Hgb 10.5 g/dL (11.5-15.3) L 04/09/22 05:29 Hct 31.6 % (37.0-47.0) L 04/09/22 05:29 MCV 96.6 fl (81-99) 04/09/22 05:29 MCH 32.1 pg (28.0-34.0) 04/09/22 05:29 MCHC 33.2 g/dL (30.0-36.0) 04/09/22 05:29 RDW 13.9 % (12.1-15.1) 04/09/22 05:29 Plt Count 163 10^3/cmm (130-400) 04/09/22 05:29 MPV 10.6 fL (7.4-10.4) H 04/09/22 05:29 Neut % (Auto) 63.3 % 04/09/22 05:29 Lymph % (Auto) 20.2 % 04/09/22 05:29 [place] % (Auto) 10.2 % 04/09/22 05:29 Eos % (Auto) 5.6 % 04/09/22 05:29 Baso % (Auto) 0.5 % 04/09/22 05:29 Neut # (Auto) 2.59 10^3/uL (1.8-7.7) 04/09/22 05:29 Lymph # (Auto) 0.8 10^3/uL (0.8-4.8) 04/09/22 05:29 [place] # (Auto) 0.4 10^3/uL (0.2-0.9) 04/09/22 05:29 Eos # (Auto) 0.2 10^3/uL (0.0-0.8) 04/09/22 05:29 Baso # (Auto) 0.0 10^3/uL (0.0-0.1) 04/09/22 05:29 Nucleated RBC % (auto) 0 % 04/09/22 05:29 Nucleated RBCs # 0.0 /100WBC 04/09/22 05:29 PT 14.20 SECONDS (12.1-14.9) 04/08/22 09:32 INR 1.07 (0.8-1.2) 04/08/22 09:32 APTT 30.1 SECONDS (23.9-36.7) 04/08/22 09:32 Sodium 141 mmol/L (136-145) 04/09/22 05:29 Potassium 3.4 mmol/L (3.5-5.1) L 04/09/22 05:29 Chloride 105 mmol/L (98-107) 04/09/22 05:29 Carbon Dioxide 27 mmol/L (22-29) 04/09/22 05:29 Anion Gap 12.4 (5-19) 04/09/22 05:29 BUN 15 mg/dL (8-23) 04/09/22 05:29 Creatinine 0.5 mg/dL (0.5-0.9) 04/09/22 05:29 GFR Calculation Not Reportable 04/09/22 05:29 Glucose 83 mg/dL (65-115) 04/09/22 05:29 Calculated Osmolality 292 mOsm/kg (285-295) 04/09/22 05:29 Calcium 8.1 mg/dL (8.5-10.5) L 04/09/22 05:29 Magnesium 1.7 mg/dL (1.7-2.3) 04/09/22 05:29 Total Bilirubin 0.3 mg/dL (0.15-1.2) 04/08/22 09:32 AST 12 U/L (0-32) 04/08/22 09:32 ALT 8 U/L (0-33) 04/08/22 09:32 Alkaline Phosphatase 54 IU/L (35-105) 04/08/22 09:32 Total Protein 5.7 g/dL (6.6-8.7) L 04/08/22 09:32 Albumin 3.7 g/dL (3.5-5.2) 04/08/22 09:32 Globulin 2.0 g/dL (1.3-4.6) 04/08/22 09:32 Carcinoembryonic Ag 2.1 ng/mL (0.0-4.7) 04/08/22 09:32 Blood Type B Positive 04/08/22 09:32 Rho(D) Type Positive 04/08/22 09:32 Antibody Screen Negative 04/08/22 09:32 Vitals Last Vital Signs Temp 98.1 F 04/09/22 07:53 Pulse 87 04/09/22 07:53 Resp 16 04/09/22 07:53 BP 188/85 04/09/22 07:53 Pulse Ox 94 04/09/22 08:00 Discharge Plan Discharge Patient Disposition: Home Condition: Stable Prescriptions: New metronidazole 500 mg tablet 500 mg PO BID 7 Days Qty: 14 0RF levofloxacin 500 mg tablet 500 mg PO DAILY 7 Days Qty: 7 0RF Continued levothyroxine 137 mcg capsule 137 mcg PO QDAY 0RF terazosin 2 mg capsule 2 mg PO BID 0RF omega-3 fatty acids 1,000 mg capsule 1,000 mg PO BID 0RF docusate sodium [Colace] 100 mg capsule 100 mg PO DAILY PRN (Reason: Constipation) 0RF hydrocodone-acetaminophen 5-325 mg tablet 1 tab PO BID PRN (Reason: Pain) 0RF duloxetine 60 mg capsule,delayed release(DR/EC) 60 mg PO QDAY 0RF aspirin [Adult Low Dose Aspirin] 81 mg tablet,delayed release (DR/EC) 81 mg PO QDAY 0RF furosemide 20 mg tablet 20 mg PO DAILY 0RF lisinopril 5 mg tablet 5 mg PO DAILY 0RF ascorbate calcium (vitamin C) 500 mg tablet 1 g PO DAILY 0RF verapamil 240 mg capsule,ext rel. pellets 24 hr 240 mg PO BID Qty: 180 3RF trazodone 50 mg Tablet 50 mg PO DAILY 0RF buspirone 30 mg tablet 30 mg PO BID 0RF Tylenol PM Extra Strength 25-500 mg Tablet 1 - 2 tab PO BEDTIME 0RF Rx Instructions: administer while awake Centrum Women 18-400 mg-mcg Tablet 1 tab PO DAILY 0RF oxybutynin chloride 5 mg tablet 5 mg PO DAILY 0RF pantoprazole 40 mg tablet,delayed release (DR/EC) 40 mg PO BID 30 Days Qty: 60 2RF Discharge Orders: Discharge Order (Routine); Ordered 04/09/22 Ordered By: Scar Garrison Referrals: Joe Riggs MD [Physician] - 1 month Zaki Garcia MD [Primary Care Provider] - 1 week Discharge Diet: Regular Patient Instructions: Opioid Safety Discharge Attestations Time Spent in Discharge Care*: less than 30 min Specific Discharge Activities: educating patient, educating and/or supporting family/caregiver, discussing with pcp/other providers, discussing with bilingual patient support caseworker/social workers/dc planners, documenting/other paperwork and evaluating patient/reviewing data Status at Discharge: Cognitive status at discharge: cognitively intact , Behavioral status at discharge: cooperative , Quality Metrics Clinical Quality Measures [ No reported AMI, CVA or VTE this stay] Coding Level of Care Code Acute [facility] [place] note Diagnoses Proctitis K62.89 Sigmoid diverticulosis K57.30 Atrial fibrillation I48.21 Atrial fibrillation type: permanent TIA (transient ischemic attack) G45.9 CHF (congestive heart failure) I50.32 Heart failure chronicity: chronic Heart failure type: diastolic Essential hypertension I10 Hematochezia K92.1
--- NOTE | 2022-04-09 10:59 | PC.CHAP ---
Pastoral Care Encounter/Spiritual Assessment Type of Contact [] Declined java analyst visit [] Patient/Family/Request visit [] Outpatient visit [] Follow-up visit [] Physician referral [] Code/Alert [x] Routine visit [] Staff referral [] Actively dying [] Patient sleeping [] Family support [] [] Out of room [] Palliative care [] [x] Receiving care in room [] Pre-surgical visit [] Trauma [x] Long length of stay [] ICU visit [] Other: Relational/Emotional Strength [x] Patient feels connected with others/family/visitors/staff [x] Distress [] Loneliness/isolation [] Abandonment Spirituality of Patient [x] Person of Myra [] Attends Sikh of their Myra [x] Believes in Prayer [] Reads Bible or Samaritan materials [] There are Spiritual issues to be addressed Egg Grader Interventions [x] Prayer [x] Active listening [x] Non-anxious presence [x] Spiritual/emotional support [] Crisis/trauma care [x] Spiritual counseling [] Bereavement support [] Provided bereavement packet [] Provided Bible/devotional materials [] Provided toy/stuffed animal, coloring book to patient or family member [] Provided Communion [] Anointing/[place] [] Salvation [x] Completed spiritual assessment [] Other: Impact on Illness or Injury [] Angry [x] Fearful [] Anxious [] Often cries [x] Exhaustion [x] Unable to work [] Unable to attend pentecostalism [] Unable to walk/stand [] Unable to read [] Unable to drive [] Unable to eat/drink [] Unable to sleep [] Unable to be with family [] Patient intubated [] Other: Summary stress un able to communicate Time spent with patient 10 mins
[2022-04-09 11:53] VITALS: BP 151/87; PULSE 94; RESP 17; O2SAT 90
== END 2022-04-09 12:13 | disposition home or self-care (01) | DRG 394 ==
LOC: ER 12:07 → MEDSURG 14:22
PROVIDERS: Internal Medicine; Admitting Provider Internal Medicine; Emergency Provider Physician Assistant; PCP Family Medicine; Visit Provider Internal Medicine
DX: K62.89 Other specified diseases of anus and rectum (principal); I48.21 Permanent atrial fibrillation; K92.1 Melena; I50.32 Chronic diastolic (congestive) heart failure; K57.30 Diverticulosis of large intestine without perforation or abscess without bleeding; I11.0 Hypertensive heart disease with heart failure; E78.5 Hyperlipidemia, unspecified; K44.9 Diaphragmatic hernia without obstruction or gangrene; K21.9 Gastro-esophageal reflux disease without esophagitis; Z86.73 Personal history of transient ischemic attack (TIA), and cerebral infarction without residual deficits; E03.9 Hypothyroidism, unspecified; J45.909 Unspecified asthma, uncomplicated; N39.46 Mixed incontinence; Z91.81 History of falling; Z79.891 Long term (current) use of opiate analgesic; Z79.82 Long term (current) use of aspirin
CPT/HCPCS: 36415; 43239; 45385; 74176; 80048; 80053; 82378; 83735; 83880; 84145; 85014; 85018; 85025; 85610; 85730; 86850; 86900; 86920; 88305; 93005; 96361; 96365; 96367; 96374; 96375; 99285; C9113; J0744; J1956; J2405; J2543; J2704; J3475; J3480; J7030; J7040; S0030

== ENCOUNTER 2022-04-11 12:40 | Inpatient (IN) | payer MEDICARE, MEDICAID, SELFPAY ==
[2022-04-11 12:55] VITALS: BP 143/80; PULSE 90; RESP 16; TEMP 36.9; O2SAT 98; BMI 30.2
--- NOTE | 2022-04-11 12:55 | ECG_ITS ---
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 Measurements Intervals [place] Rate: 77 P: [place]: QRS: -69 QRSD: 105 T: 268 QT: 417 QTc: 474 Interpretive Statements ATRIAL FIBRILLATION WITH ABERRANT CONDUCTION OR VENTRICULAR PREMATURE COMPLEXES LEFT AXIS DEVIATION [QRS AXIS < -30] ST DEVIATION AND MODERATE T-WAVE ABNORMALITY, CONSIDER ANTEROLATERAL ISCHEMIA [-0.1+ mV T-WAVE IN V3-V6] ST DEVIATION AND MODERATE T-WAVE ABNORMALITY, CONSIDER INFERIOR ISCHEMIA [-0.1+ mV T-WAVE IN II/aVF] Compared to ECG 04/20/2020 18:30:06 Ventricular premature complex(es) now present Aberrant conduction of supraventricular beat(s) now present Left-axis deviation now present Left anterior fascicular block no longer present T-wave abnormality still present Possible ischemia still present Electronically Signed On 04-12-2022 23:38:51 CDT by Juan J Byrd M.D. [email or web address]
[2022-04-11 13:08] LABS: Basophils % 0.4 %; Eosinophils # 0.1 10^3/uL (0.0-0.8); Eosinophils % 1.6 %; Hematocrit 33.4 % (37.0-47.0); Hemoglobin 10.6 g/dL (11.5-15.3); Lymphocytes # 0.7 10^3/uL (0.8-4.8); Lymphocytes % 14.8 %; Mean Corpuscular HGB Conc 31.7 g/dL (30.0-36.0); Mean Corpuscular Hemoglobin 32.8 pg (28.0-34.0); Mean Corpuscular Volume 103.4 fl (81-99); Mean Platelet Volume 10.3 fL (7.4-10.4); Monocytes # 0.3 10^3/uL (0.2-0.9); Neutrophils # 3.69 10^3/uL (1.8-7.7); Nucleated Red Blood Cells % 0 %; Platelet Count 166 10^3/cmm (130-400); Red Blood Count 3.23 10^6/uL (4.1-5.3); Red Cell Distribution Width 14.2 % (12.1-15.1); White Blood Count 4.9 10^3/uL (4.0-10.0)
[2022-04-11 13:21] LABS: Alanine Aminotransferase 10 U/L (0-33); Albumin Level 3.5 g/dL (3.5-5.2); Alkaline Phosphatase 50 IU/L (35-105); Anion Gap 13.5 (5-19); Aspartate Amino Transferase 16 U/L (0-32); Blood Urea Nitrogen 6 mg/dL (8-23); Calcium 8.7 mg/dL (8.5-10.5); Carbon Dioxide 28 mmol/L (22-29); Chloride 101 mmol/L (98-107); Globulin 2.1 g/dL (1.3-4.6); Glucose 112 mg/dL (65-115); Osmolality Calculated 286 mOsm/kg (285-295); Potassium 3.5 mmol/L (3.5-5.1); Sodium 139 mmol/L (136-145); Total Bilirubin 0.3 mg/dL (0.15-1.2); Total Protein 5.6 g/dL (6.6-8.7)
[2022-04-11 13:33] LABS: INR 1.12 (0.8-1.2)
--- NOTE | 2022-04-11 13:44 | W.ED.GIBLEED ---
HPI - GI Bleed General: Chief complaint: GI Bleed Stated complaint: SYNCOPE; RECTAL BLEED Time Seen by Provider: 04/11/22 12:54 Source: patient and family Mode of arrival: EMS Limitations: no limitations History of Present Illness: 86-year-old female returns to the emergency room for complaints of rectal bleeding she was seen 2 days ago had rectal bleeding at that time CT showed questionable colitis she was started on Cipro Flagyl she is continue to have bleeding had a near syncopal episode prior to arrival here ambulance was called. She not had any vomiting. No fever sweats or chills. She was previously on anticoagulation but that had been stopped. MD complaint: gross hematochezia Onset (ago): day(s) Relieving factors: none Exacerbating factors: none Context: history of GI bleed Associated symptoms: Denies abdominal pain, chills, easy bruising, epistaxis, fever(s), headache(s), malaise, nausea, other bleeding, poor appetite, rash, syncope, vomiting or weakness Treatments Prior to Arrival: none Review of Systems Const: Denies: fever(s), chills, fatigue or malaise ENMT: Denies: epistaxis Card: Denies: chest pain, palpitations, irregular heart rhythm or syncope Resp: Denies: dyspnea, productive cough or non-productive cough GI: Denies: abdominal pain, nausea or vomiting : Denies: flank pain, difficulty voiding, dysuria, urinary frequency or urinary urgency Skin/Breast: Denies: rash Neuro: Denies: headache(s) Marlo/Lymph: Denies: easy bruising PFSH ED PFSH: Medical History Asthma Atrial fibrillation Atrial fibrillation CHF (congestive heart failure) Diverticula of intestine Dyslipidemia Essential hypertension Generalized weakness Hematochezia Hypothyroidism 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 Sigmoid diverticulosis Statin intolerance TIA (transient ischemic attack) Surgical History S/P cholecystectomy S/P hysterectomy S/P lumpectomy of breast Family History Daughter Diabetes Father Cancer Mother Cancer Other CAD (coronary artery disease) Hypertension Stroke Social History Smoking and tobacco status: never smoked Alcohol intake: never Household members: spouse Marital status: Current occupational status: retired Physical Exam Const: GENERAL APPEARANCE: cooperative and comfortable ORIENTATION/CONSCIOUSNESS: Yes awake, Yes oriented to person, Yes oriented to place and Yes oriented to time HENMT: COMMON NORMALS: normocephalic, atraumatic and hearing grossly normal bilaterally HEAD & SCALP: normocephalic and atraumatic Neck/C-Spine: COMMON NORMALS: no JVD Resp: COMMON NORMALS: normal respiratory effort, No retractions, No use of accessory muscles and clear to auscultation bilaterally AUSCULTATION: clear to auscultation bilaterally Cardio: COMMON NORMALS: no JVD, regular rate, regular rhythm and No murmurs present (Cardio) RATE: regular rate RHYTHM: regular rhythm GI: COMMON NORMALS: Soft to palpation and No hepatosplenomegaly present AUSCULTATION: Yes normoactive bowel sounds PALPATION: Yes Soft to palpation, No Tenderness to palpation present (GI), No Guarding due to palpation present (GI) and Yes No hepatosplenomegaly present Extremity: COMMON NORMALS: normal to inspection, capillary refill normal, no clubbing, cyanosis or edema, no calf tenderness and no pedal edema Neuro: SENSORIUM/ORIENTATION: Yes oriented to person, Yes oriented to place and Yes oriented to time Skin: COMMON NORMALS: no rashes or lesions noted GENERAL SKIN EXAM: no rashes or lesions noted Course Vital Signs: Vital signs: Vital Signs Temperature 97.4 F L 04/14/22 14:04 Pulse Rate 119 H 04/14/22 14:04 Respiratory Rate 16 04/14/22 14:04 Blood Pressure 121/72 04/14/22 14:04 Pulse Oximetry 94 04/14/22 14:04 MDM - GI Bleed Medical Decision Making Rate improved with low-dose Cardizem. Fluids also improved her symptoms. Will monitor overnight discussed with hospitalist orders written Medical Records I reviewed the patient's medical records. Lab Data I reviewed the patient's lab results. : 04/14/22 03:56 04/14/22 03:56 Laboratory Results WBC 5.4 10^3/uL (4.0-10.0) 04/11/22 15:20 RBC 2.60 10^6/uL (4.1-5.3) L 04/11/22 15:20 Hgb 8.4 g/dL (11.5-15.3) L 04/11/22 15:20 Hct 27.3 % (37.0-47.0) L 04/11/22 15:20 MCV 105.0 fl (81-99) H 04/11/22 15:20 MCH 32.3 pg (28.0-34.0) 04/11/22 15:20 MCHC 30.8 g/dL (30.0-36.0) 04/11/22 15:20 RDW 14.3 % (12.1-15.1) 04/11/22 15:20 Plt Count 152 10^3/cmm (130-400) 04/11/22 15:20 MPV 10.9 fL (7.4-10.4) H 04/11/22 15:20 Neut % (Auto) 76.8 % 04/11/22 15:20 Lymph % (Auto) 12.8 % 04/11/22 15:20 [place] % (Auto) 8.5 % 04/11/22 15:20 Eos % (Auto) 1.3 % 04/11/22 15:20 Baso % (Auto) 0.4 % 04/11/22 15:20 Neut # (Auto) 4.16 10^3/uL (1.8-7.7) 04/11/22 15:20 Lymph # (Auto) 0.7 10^3/uL (0.8-4.8) L 04/11/22 15:20 [place] # (Auto) 0.5 10^3/uL (0.2-0.9) 04/11/22 15:20 Eos # (Auto) 0.1 10^3/uL (0.0-0.8) 04/11/22 15:20 Baso # (Auto) 0.0 10^3/uL (0.0-0.1) 04/11/22 15:20 Nucleated RBC % (auto) 0 % 04/11/22 15:20 Nucleated RBCs # 0.0 /100WBC 04/11/22 15:20 PT 14.70 SECONDS (12.1-14.9) 04/11/22 13:15 INR 1.12 (0.8-1.2) 04/11/22 13:15 APTT 26.0 SECONDS (23.9-36.7) 04/11/22 13:15 Sodium 139 mmol/L (136-145) 04/11/22 13:00 Potassium 3.5 mmol/L (3.5-5.1) 04/11/22 13:00 Chloride 101 mmol/L (98-107) 04/11/22 13:00 Carbon Dioxide 28 mmol/L (22-29) 04/11/22 13:00 Anion Gap 13.5 (5-19) 04/11/22 13:00 BUN 6 mg/dL (8-23) L 04/11/22 13:00 Creatinine 0.6 mg/dL (0.5-0.9) 04/11/22 13:00 GFR Calculation Not Reportable 04/11/22 13:00 Glucose 112 mg/dL (65-115) 04/11/22 13:00 Calculated Osmolality 286 mOsm/kg (285-295) 04/11/22 13:00 Calcium 8.7 mg/dL (8.5-10.5) 04/11/22 13:00 Total Bilirubin 0.3 mg/dL (0.15-1.2) 04/11/22 13:00 AST 16 U/L (0-32) 04/11/22 13:00 ALT 10 U/L (0-33) 04/11/22 13:00 Alkaline Phosphatase 50 IU/L (35-105) 04/11/22 13:00 NT-Pro-B Natriuret Pep 1217 pg/mL (0-450) H 04/11/22 13:00 Total Protein 5.6 g/dL (6.6-8.7) L 04/11/22 13:00 Albumin 3.5 g/dL (3.5-5.2) 04/11/22 13:00 Globulin 2.1 g/dL (1.3-4.6) 04/11/22 13:00 Procalcitonin 0.04 ng/mL (0-0.5) 04/11/22 13:00 Blood Type B Positive 04/11/22 16:40 Rho(D) Type Positive 04/11/22 16:40 Antibody Screen Negative 04/11/22 16:40 Crossmatch See Detail 04/11/22 16:40 Discharge Plan Discharge Patient Disposition: Admitted As Inpatient Admit Provider: Giulia Irvin Clinical Impression: Atrial fibrillation Condition: Stable Discharge Diet: Cardiac and GI Soft Discharge Activity: Resume usual activity and Increase activity as tolerated Coding Level of Care Code ED Ammonia Nitrate Operator for Chg Fwd Exam Comprehensive
--- NOTE | 2022-04-11 13:46 | PC.PHAR ---
PTS DAUGHTER VERIFIED PTS MEDICATIONS-NOTES ARE MADE IN THE PHARMACY COMMENTS
[2022-04-11 15:27] LABS: Basophils % 0.4 %; Eosinophils # 0.1 10^3/uL (0.0-0.8); Eosinophils % 1.3 %; Hematocrit 27.3 % (37.0-47.0); Hemoglobin 8.4 g/dL (11.5-15.3); Lymphocytes # 0.7 10^3/uL (0.8-4.8); Lymphocytes % 12.8 %; Mean Corpuscular HGB Conc 30.8 g/dL (30.0-36.0); Mean Corpuscular Hemoglobin 32.3 pg (28.0-34.0); Mean Platelet Volume 10.9 fL (7.4-10.4); Monocytes # 0.5 10^3/uL (0.2-0.9); Monocytes % 8.5 %; Neutrophils # 4.16 10^3/uL (1.8-7.7); Neutrophils % 76.8 %; Nucleated Red Blood Cells % 0 %; Platelet Count 152 10^3/cmm (130-400); Red Cell Distribution Width 14.3 % (12.1-15.1); White Blood Count 5.4 10^3/uL (4.0-10.0)
--- NOTE | 2022-04-11 16:45 | PM.HP ---
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 She is also having some abdominal discomfort. She denies any nausea, vomiting, hematuria, epistaxis. Patient recently was in the hospital on 08 April admitted for the same complaint. Hemoglobin at that time was 11. CT abdomen pelvis showed sigmoid diverticulitis this and circumferential soft tissue thickening with mild induration involving the rectum that may be due to proctitis but neoplasm not excluded. She was monitored in the hospital did not require blood transfusion. Hemoglobin stayed stable and therefore she was discharged home on Flagyl and levofloxacin. During her hospital stay she was on IV antibiotics. She was discharged home in stable condition and asked to follow-up with her surgeon for outpatient colonoscopy. She had no further rectal bleeding. Today she comes in with continued bleed and had a near syncopal episode prior to arrival. EMS was called and she was brought to the hospital. ED course: On arrival blood pressure 143/80 Garst rate 16, pulse 90, temperature 98.5, pulse ox 98% on room air. Hemoglobin on arrival was 10.6 and 2 hours later was 8.4. Case discussed with general surgery by ER doc. We will admit at this time. Medications/Allergies Home Medications Medication Instructions Recorded Confirmed Last Taken Type aspirin 81 mg tablet,delayed 81 mg PO BEDTIME 10/19/19 04/11/22 04/10/22 History release (Adult Low Dose Aspirin) docusate sodium 100 mg capsule 100 mg PO BID PRN 10/19/19 04/11/22 Unknown History (Colace) duloxetine 60 mg capsule,delayed 60 mg PO DAILY@12 10/19/19 04/11/22 04/11/22 History release hydrocodone 5 mg-acetaminophen 325 1 tab PO BID PRN 10/19/19 04/11/22 04/11/22 History mg tablet omega-3 fatty acids 1,000 mg 1,000 mg PO BID 10/19/19 04/11/22 04/11/22 History capsule terazosin 2 mg capsule 2 mg PO BID cap 10/19/19 04/11/22 04/11/22 History furosemide 20 mg tablet 20 mg PO DAILY PRN tab 04/10/20 04/11/22 Unknown History lisinopril 5 mg tablet 5 mg PO QAM 07/25/20 04/11/22 04/11/22 History verapamil 240 mg 24 hr 240 mg PO BID #180 cap 12/23/21 04/11/22 04/11/22 Rx capsule,extended release buspirone 30 mg tablet 30 mg PO BID 04/08/22 04/11/22 04/11/22 History diphenhydramine 25 2 tab PO BEDTIME 04/08/22 04/11/22 Unknown History mg-acetaminophen 500 mg tablet (Tylenol PM Extra Strength) multivitamin-ferrous 1 tab PO DAILY 04/08/22 04/11/22 Unknown History fumarate-folic acid 18 mg-400 mcg tablet (Centrum Women) trazodone 50 mg tablet 50 mg PO BEDTIME PRN 04/08/22 04/11/22 Unknown History levofloxacin 500 mg tablet 500 mg PO DAILY 7 Days #7 tab 04/09/22 04/11/22 04/11/22 Rx metronidazole 500 mg tablet 500 mg PO BID 7 Days #14 tab 04/09/22 04/11/22 04/11/22 Rx pantoprazole 40 mg tablet,delayed 40 mg PO BID 30 Days #60 tab 04/09/22 04/11/22 04/11/22 Rx release levothyroxine 137 mcg tablet 137 mcg PO QAM 04/11/22 04/11/22 04/11/22 History oxybutynin chloride 5 mg tablet 5 mg PO DAILY@12 04/11/22 04/11/22 04/11/22 History Allergies Allergy/AdvReac Type Severity Reaction Status Date / Time zolpidem [From Ambien] Allergy Severe ADR-Halluci Verified 04/11/22 18:45 nating propoxyphene [From Darvon] Allergy Unknown ADR-Nausea Verified 04/11/22 18:45 PFSH Acute PFSH: Medical History Asthma Atrial fibrillation CHF (congestive heart failure) Dyslipidemia Essential hypertension Hematochezia Hypothyroidism 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 Sigmoid diverticulosis Statin intolerance TIA (transient ischemic attack) Surgical History S/P cholecystectomy S/P hysterectomy S/P lumpectomy of breast Family History Daughter Diabetes Father Cancer Mother Cancer Other CAD (coronary artery disease) Hypertension Stroke Social History Smoking and tobacco status: never smoked Alcohol intake: never Household members: spouse Marital status: Current occupational status: retired Vitals/I&O/Wt Last Vital Signs Temp 98.5 F 04/11/22 12:55 Pulse 90 04/11/22 12:55 Resp 16 04/11/22 12:55 BP 143/80 04/11/22 12:55 Pulse Ox 98 04/11/22 12:55 Weight last 48 hrs Weight 68.039 kg Physical Exam Narrative: General: Alert oriented x3, patient seen this morning.? Laying in bed comfortably at this time. HEENT: Normocephalic, atraumatic, EOMI, breathing normally on room air Cardio: Regular rate rhythm, normal S1-S2, Respiratory: Good bilateral air entry, no wheezes no rhonchi appreciated GI: Abdomen soft, nontender, nondistended, bowel sounds + Extremities: Trace lower extremity edema, no cyanosis : Rectal exam done by general surgery. Fresh blood noted. Data : 04/12/22 08:30 04/12/22 02:35 A&P Assessment and plan (1) Mixed stress and urge urinary incontinence: Status: Acute (2) Statin intolerance: Status: Acute (3) Dyslipidemia: Status: Acute (4) Lower GI bleed: Status: Acute (5) Diverticula of intestine: Status: Acute (6) Diverticulosis: Status: Acute Plan #Lower GI bleed most likely diverticular #Sigmoid diverticulosis #Atrial fibrillation, not on anticoagulation #Hypertension #Hypothyroidism #GERD #Dyslipidemia #History of CVA #CHF ? Monitor H&H every 8 hours ? Protonix 40 IV daily - Normal saline 75 cc/h ? Check orthostatic vital signs ? Continue ciprofloxacin and Flagyl ? Continue levothyroxine ? Patient is rate controlled. Continue verapamil to 40 twice daily ? General surgery consulted. -We will monitor hemoglobin. She will potentially need colonoscopy. CODE STATUS: DNR/DNI DVT prophylaxis: SCDs Attestations Medical Necessity Statement*: Requires inpatient level of care of management of GI bleed. Will cross 2 midnights. Coding Level of Care Code Acute Mold Cutting Machine Operator for Chg Fwd Diagnoses Mixed stress and urge urinary incontinence N39.46 Statin intolerance Z78.9 Dyslipidemia E78.5 Lower GI bleed K92.2 Diverticula of intestine K57.30 Diverticulosis K57.90
[2022-04-11 17:27] VITALS: BP 155/99; PULSE 85; RESP 14; O2SAT 93
--- NOTE | 2022-04-11 17:31 | P.CONIM_ITS ---
Providers/Reason For Consult Consulting Physician/Specialty*: Ed Gamboa MD Reason for Consult*: Hematochezia Requesting Physician: Dr. Fried Attending Physician: Dr. Irvin Primary Care Provider: Zaki Garcia MD History of Present Illness History of Present Illness Ms. Kaylin Hdez is a pleasant 86 year old female resents to the emergency department with hematochezia, current blood work showed hemoglobin of 8.4, plate let count 152, INR 1.12, creatinine 0.6 and normal LFTs. Patient undergone a CT of the abdomen pelvis at her last visit to the ER about 2 days ago that did show; 1.? Sigmoid diverticulosis. No evidence of acute diverticulitis. 2.? Circumferential soft tissue thickening with mild induration involving the rectum may be due to proctitis but neoplasm not excluded. Recommend follow-up sigmoidoscopy to exclude neoplasm. No definite visualized mass on this n oncontrast examination. 3.? No evidence of small or large bowel obstruction. 4.? Stable supraumbilical fat-containing hernia. Small amount of adjacent fluid. 5.? Diffuse body wall anasarca. 6.? Bulky retrocrural and upper abdominal calcifications unchanged from prior examinations. Apparently patient does have history of orthostatic hypotension, history of atrial fibrillation not on anticoagulation, hypertension, hypothyroidism, GERD, dyslipidemia, history of statin intolerance and patient incidentally was found to have basilar artery aneurysm. Apparently the patient was admitted recently to the hospitalist service on 04/08/2022 and was discharged on Levaquin and metronidazole for 7 days with the plan to follow-up with surgery service for further evaluation and potential sigmoidoscopy. But unfortunately the patient found to have continued rectal bleeding and came back to the ER for further evaluation and management. General surgery was consulted for further intervention. Patient undergone an EGD and colonoscopy for GI bleed back in [address] Riggs and was found to have normal EGD and a colonoscopy showed diverticulosis of the sigmoid colon, internal hemorrhoids and polyps of the ascending part of the colon. Patient was seen and evaluated in room #16 in the ED Review of Systems General: Reports: 10 or more systems reviewed and unremarkable except in HPI and below Medications/Allergies Home Medications Medication Instructions Recorded Confirmed Last Taken Type aspirin 81 mg tablet,delayed 81 mg PO BEDTIME 10/19/19 04/11/22 04/10/22 History release (Adult Low Dose Aspirin) docusate sodium 100 mg capsule 100 mg PO BID PRN 10/19/19 04/11/22 Unknown History (Colace) duloxetine 60 mg capsule,delayed 60 mg PO DAILY@12 10/19/19 04/11/22 04/11/22 History release hydrocodone 5 mg-acetaminophen 325 1 tab PO BID PRN 10/19/19 04/11/22 04/11/22 History mg tablet omega-3 fatty acids 1,000 mg 1,000 mg PO BID 10/19/19 04/11/22 04/11/22 History capsule terazosin 2 mg capsule 2 mg PO BID cap 10/19/19 04/11/22 04/11/22 History furosemide 20 mg tablet 20 mg PO DAILY PRN tab 04/10/20 04/11/22 Unknown History lisinopril 5 mg tablet 5 mg PO QAM 07/25/20 04/11/22 04/11/22 History verapamil 240 mg 24 hr 240 mg PO BID #180 cap 12/23/21 04/11/22 04/11/22 Rx capsule,extended release buspirone 30 mg tablet 30 mg PO BID 04/08/22 04/11/22 04/11/22 History diphenhydramine 25 2 tab PO BEDTIME 04/08/22 04/11/22 Unknown History mg-acetaminophen 500 mg tablet (Tylenol PM Extra Strength) multivitamin-ferrous 1 tab PO DAILY 04/08/22 04/11/22 Unknown History fumarate-folic acid 18 mg-400 mcg tablet (Centrum Women) trazodone 50 mg tablet 50 mg PO BEDTIME PRN 04/08/22 04/11/22 Unknown History levofloxacin 500 mg tablet 500 mg PO DAILY 7 Days #7 tab 04/09/22 04/11/22 04/11/22 Rx metronidazole 500 mg tablet 500 mg PO BID 7 Days #14 tab 04/09/22 04/11/22 04/11/22 Rx pantoprazole 40 mg tablet,delayed 40 mg PO BID 30 Days #60 tab 04/09/22 04/11/22 04/11/22 Rx release levothyroxine 137 mcg tablet 137 mcg PO QAM 04/11/22 04/11/22 04/11/22 History oxybutynin chloride 5 mg tablet 5 mg PO DAILY@12 04/11/22 04/11/22 04/11/22 History Allergies Allergy/AdvReac Type Severity Reaction Status Date / Time zolpidem [From Ambien] Allergy Severe ADR-Halluci Verified 04/11/22 18:45 nating propoxyphene [From Darvon] Allergy Unknown ADR-Nausea Verified 04/11/22 18:45 PFSH Acute PFSH: Medical History Asthma Atrial fibrillation CHF (congestive heart failure) Dyslipidemia Essential hypertension Hematochezia Hypothyroidism 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 Sigmoid diverticulosis Statin intolerance TIA (transient ischemic attack) Surgical History S/P cholecystectomy S/P hysterectomy S/P lumpectomy of breast Family History Daughter Diabetes Father Cancer Mother Cancer Other CAD (coronary artery disease) Hypertension Stroke Social History Smoking and tobacco status: never smoked Alcohol intake: never Household members: spouse Marital status: Current occupational status: retired Vitals/I&O/Wt Last Vital Signs Temp 98.5 F 04/11/22 12:55 Pulse 85 04/11/22 17:27 Resp 14 04/11/22 17:27 BP 155/99 04/11/22 17:27 Pulse Ox 93 04/11/22 17:27 Weight last 48 hrs Weight 150 lb Physical Exam Const: COMMON NORMALS: no acute distress and patient oriented x3 GENERAL APPEARANCE: cooperative ORIENTATION/CONSCIOUSNESS: Yes awake, Yes oriented to person, Yes oriented to place and Yes oriented to time HENMT: COMMON NORMALS: normocephalic HEAD & SCALP: normocephalic Eye: COMMON NORMALS: Equal, round and reactive pupils present and no scleral icterus PUPIL: Yes Equal, round and reactive pupils present Lymph: LYMPHATIC: no lymphadenopathy noted Chest: COMMONS NORMALS: normal inspection of the chest Resp: COMMON NORMALS: normal respiratory effort and clear to auscultation bilaterally AUSCULTATION: clear to auscultation bilaterally Cardio: COMMON NORMALS: S1 normal heart sound present and S2 normal heart sound present; negative for No murmurs present (Cardio) HEART SOUNDS: S1 normal heart sound present and S2 normal heart sound present GI: COMMON NORMALS: Soft to palpation; negative for No hepatosplenomegaly present INSPECTION: Yes normal to inspection and No Laceration(s) present (GI) PALPATION: Yes Soft to palpation, No Firmness to palpation present (GI), No Tenderness to palpation present (GI), No Guarding due to palpation present (GI), No Rigid due to palpation and No No hepatosplenomegaly present RECTAL EXAM: visual inspection normal, sphincter tone abnormal (Week), No External hemorrhoid(s) present, No Fistula present (GI), no laceration(s) noted, No Excoriation present (GI), no mass(es) noted, no tenderness noted and other (Fresh blood per examining finger) OTHER: Patient was examined in the presence of female customer care coordinator nursing staff Neuro: COMMON NORMALS: patient oriented x3 SENSORIUM/ORIENTATION: Yes oriented to person, Yes oriented to place and Yes oriented to time Psych: COMMON NORMALS: mental status grossly normal Skin: COMMON NORMALS: no rashes or lesions noted GENERAL SKIN EXAM: no rashes or lesions noted Data : 04/12/22 02:35 04/12/22 02:35 A&P Assessment and plan (1) Lower GI bleed: After history taking physical examination and reviewing the chart and images with my personal interpretation. Would recommend for now IV fluid resuscitation and blood transfusion per protocol Ginger and Dung IV Monitor H&H every 6 hours Follow on the patient's clinical progress Talking with the patient and her daughter seem to be reserved in any aggressive approach, although if patient continues to have blood per rectum she would require diagnostic EGD and colonoscopy possible enteroscopy And if the bleeding is profuse a potential angioembolization should be available as a standby for potential intervention. Patient can have sips of water We will continue coordinating care with Dr. Brandee love service Assurance and education All questions have been answered and all concerns have been addressed to patient's satisfaction. Status: Acute Consult Attestations Medical Necessity Statement: Per admitting service Time Spent in Patient Care: 16 - 35 minutes Coding Level of Care Code Acute Surgical Instrument Mechanic for [facility] Fwd Exam Comprehensive Diagnoses Lower GI bleed K92.2
[2022-04-11 18:24] LABS: Procalcitonin 0.04 ng/mL (0-0.5)
[2022-04-11 18:25] LABS: NT Pro B Type Natriuretic Pept 1217 pg/mL (0-450)
[2022-04-11 19:32] LABS: Hematocrit 28.7 % (37.0-47.0)
[2022-04-11] MEDS: pantoprazole 40 mg SDV IVP (19:48)
[2022-04-11] MEDS: BuSPIRONE 10 mg Tablet 30 MG PO (19:48)
[2022-04-11] MEDS: metroNIDAZOLE IV 500 MG/100 ML PREMIX 100 MG IV (19:48)
[2022-04-11] MEDS: sodium chloride 0.9% 1,000 ML 75 ML IV (19:49)
[2022-04-11] MEDS: HYDROcodone-acetaminophen 5-325 mg Tablet 1 TAB PO (19:50)
[2022-04-11 20:00] VITALS: BP 157/83; PULSE 83; RESP 17; TEMP 36.7; O2SAT 90; BMI 29.9
[2022-04-11] MEDS: trazodone 50 mg Tablet PO (21:16)
[2022-04-12] VITALS (10 sets, daily range): BP systolic 152–177; BP diastolic 70–95; PULSE 77–101; RESP 16–17; TEMP 36.3–36.9; O2SAT 91–98
[2022-04-12] MEDS: metroNIDAZOLE IV 500 MG/100 ML PREMIX 100 MG IV ×3 (01:42→18:16)
[2022-04-12 03:02] LABS: Basophils % 0.4 %; Eosinophils # 0.1 10^3/uL (0.0-0.8); Eosinophils % 2.7 %; Hematocrit 31.6 % (37.0-47.0); Lymphocytes % 19.7 %; Mean Corpuscular HGB Conc 31.6 g/dL (30.0-36.0); Mean Corpuscular Hemoglobin 32.8 pg (28.0-34.0); Mean Corpuscular Volume 103.6 fl (81-99); Mean Platelet Volume 10.3 fL (7.4-10.4); Monocytes # 0.5 10^3/uL (0.2-0.9); Monocytes % 10.2 %; Neutrophils # 3.49 10^3/uL (1.8-7.7); Neutrophils % 66.8 %; Nucleated Red Blood Cells % 0 %; Platelet Count 168 10^3/cmm (130-400); Red Blood Count 3.05 10^6/uL (4.1-5.3); Red Cell Distribution Width 14.5 % (12.1-15.1); White Blood Count 5.2 10^3/uL (4.0-10.0)
[2022-04-12 03:18] LABS: Alanine Aminotransferase 7 U/L (0-33); Albumin Level 3.3 g/dL (3.5-5.2); Alkaline Phosphatase 45 IU/L (35-105); Anion Gap 11.2 (5-19); Aspartate Amino Transferase 16 U/L (0-32); Blood Urea Nitrogen 7 mg/dL (8-23); Calcium 8.3 mg/dL (8.5-10.5); Carbon Dioxide 28 mmol/L (22-29); Chloride 103 mmol/L (98-107); Glucose 89 mg/dL (65-115); Magnesium 1.7 mg/dL (1.7-2.3); Osmolality Calculated 285 mOsm/kg (285-295); Potassium 3.2 mmol/L (3.5-5.1); Sodium 139 mmol/L (136-145); Total Bilirubin 0.4 mg/dL (0.15-1.2); Total Protein 5.3 g/dL (6.6-8.7)
[2022-04-12] MEDS: levothyroxine 137 mcg Tablet PO (04:09)
--- NOTE | 2022-04-12 06:43 | PC.NURSE ---
Unable to keep accurate output related to urinary incontinence.
[2022-04-12] MEDS: peg /e-lyte soln 4,000 mL Btl 4000 ML PO (08:46)
[2022-04-12 08:48] LABS: Hematocrit 31.2 % (37.0-47.0); Hemoglobin 10.2 g/dL (11.5-15.3)
[2022-04-12] MEDS: BuSPIRONE 10 mg Tablet 30 MG PO ×2 (08:49→18:12)
[2022-04-12] MEDS: levofloxacin-dextrose 5 % 500 MG/100 ML PREMIX 100 MG IV (08:49)
[2022-04-12] MEDS: pantoprazole 40 mg SDV IVP ×2 (08:50→18:12)
[2022-04-12] MEDS: verapamil ER 240 mg Tablet PO ×2 (08:54→18:12)
--- NOTE | 2022-04-12 08:56 | P.PN_ITS ---
Subjective Subjective: Seen this AM. Patient continues to have large bloody bowel movements with blood clots. Hemoglobin is 10 this morning. She did not get 2 unit of blood last night. We will continue to monitor hemoglobin every 8 hours. General surgery also saw patient. GoLytely has been started. She will need to have colonoscopy tomorrow morning. Hemodynamically stable at this time. Vitals/I&O/Wt Last Vital Signs Temp 97.4 F L 04/12/22 07: Pulse 90 04/12/22 07:22 Resp 16 04/12/22 07:22 BP 177/95 04/12/22 07: Pulse Ox 96 04/12/22 07:22 04/11/22 04/12/22 04/12/22 22:59 06:59 14:59 Intake Total 100 / 100 100 / 200 Balance 100 / 100 100 / 200 Weight last 48 hrs Weight 67.404 kg Weight 68.039 kg Physical Exam Narrative: General: Alert oriented x3, patient seen this morning. HEENT: Normocephalic, atraumatic, EOMI, breathing normally on room air Cardio: Regular rate rhythm, normal S1-S2, Respiratory: Good bilateral air entry, no wheezes no rhonchi appreciated GI: Abdomen soft, nontender, nondistended, bowel sounds + Extremities: Trace lower extremity edema, no cyanosis : Rectal exam done by general surgery at admission. Fresh blood noted. Data : 04/12/22 08:30 04/12/22 02:35 A&P Assessment and plan (1) Diverticulosis: Status: Acute (2) Diverticula of intestine: Status: Acute (3) Lower GI bleed: Status: Acute (4) Mixed stress and urge urinary incontinence: Status: Acute (5) Statin intolerance: Status: Acute (6) Dyslipidemia: Status: Acute Plan #Lower GI bleed most likely diverticular #Sigmoid diverticulosis #Atrial fibrillation, not on anticoagulation #Hypertension #Hypothyroidism #GERD #Dyslipidemia #History of CVA #CHF ? Monitor H&H every 8 hours ? Protonix 40 IV daily - Normal saline 75 cc/h ? Continue ciprofloxacin and Flagyl ? Continue levothyroxine ? Patient is rate controlled.? Continue verapamil to 40 twice daily ? General surgery consulted. -We will monitor hemoglobin.? Plan for colonoscopy in a.m. GoLytely started. ? Patient will potentially need enteroscopy versus IR embolization if needed. If that need does occur she will need to be transferred to higher level of care. Will discuss with family as well. CODE STATUS: DNR/DNI DVT prophylaxis: SCDs Attestations Medical Necessity Statement*: Requires inpatient level of care of management of GI bleed.? Will cross 2 midnights. Coding Level of Care Code Acute Business Management Manager for [facility] Fwd Diagnoses Diverticulosis K57.90 Diverticula of intestine K57.30 Lower GI bleed K92.2 Mixed stress and urge urinary incontinence N39.46 Statin intolerance Z78.9 Dyslipidemia E78.5
[2022-04-12] MEDS: sodium chloride 0.9% 1,000 ML 75 ML IV ×2 (11:38→22:18)
[2022-04-12] MEDS: duloxetine 60 mg Capsule PO (12:33)
[2022-04-12] MEDS: oxybutynin 5 mg Tablet PO (12:33)
[2022-04-12] MEDS: ondansetron 2 mg/ML SDV 2 mL 4 MG IVP (14:04)
--- NOTE | 2022-04-12 15:52 | PM.PN ---
Subjective Subjective: On morning rounds patient had a large bloody bowel movement, meanwhile she maintained to have stable vital signs for the most part except for hypertension and had tachycardia of 101 at some point otherwise she maintained to be stable with adequate urine output. Earlier I started the [employer] and monitor the process through the day and patient did not have any bleeding episodes and the product of her bowel movements was yellow and clear normal blood. Medications: Reviewed: Yes Vitals/I&O/Wt Last Vital Signs Temp 97.6 F 04/12/22 15:11 Pulse 81 04/12/22 15:11 Resp 16 04/12/22 15:11 BP 177/90 04/12/22 15:11 Pulse Ox 95 04/12/22 15:11 04/12/22 04/12/22 04/12/22 06:59 14:59 22:59 Intake Total 100 / 200 1277.5 / 1277.5 Balance 100 / 200 1277.5 / 1277.5 Weight last 48 hrs Weight 148 lb 9.6 oz Weight 150 lb Physical Exam Narrative: Patient is conscious alert oriented X3 No apparent distress BMI 30 Head and neck examination PERRLA no masses no cervical lymphadenopathy no jaundice Abdomen nontender nondistended soft no organomegaly guarding or rigidity/no signs of peritonitis Data : 04/12/22 17:22 04/12/22 02:35 A&P Assessment and plan (1) Lower GI bleed: I do believe at this point that the patient's bleeding likely from a diverticular disease. And that stopped on its own. Repeat hemoglobin 10.2 g hematocrit 31.2 and platelet count 168. Start the patient on clear liquid diet and keep her n.p.o. after midnight in case that she drops her hemoglobin or there is evidence of more bleeding at that point we will proceed with diagnostic EGD and colonoscopy. I did discuss with the patient and her daughter about the goals of care and I spent about 10 to 15 minutes talking with Ms. Agata Solomon patient's daughter over the phone [phone] in the presence of nursing staff Ellie, that perhaps it would be appropriate to continue monitoring the patient and start on clear liquid diet with repeat labs in the morning if there is a concern about more bleeding or drift in H&H at that point we will proceed with diagnostic EGD and colonoscopy and perhaps an enteroscopy down the road if we do not have an answer per scope. Patient's daughter understands the potential risks benefits and she is interested to hold off any invasive procedure at this point as long as her mom is being stable and no evidence of bleeding Patient's daughter as well was informed that even if the patient was to be discharged with a stable hemoglobin she may return to the ER with another episode of bleeding. Also Mr. Solomon is concerned about logistics regarding her mom's ability to walk and move around and I did educate her that she would need to have the major case detective involved and address those issues with physical therapy and the hospitalist service to have all these points covered before any potential discharge. We will continue coordinating care with Dr. Irvin hospitalist service Assurance and education All questions have been answered and all concerns have been addressed to patient's satisfaction. Status: Acute Attestations Medical Necessity Statement*: Per admitting service. 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
[2022-04-12 17:32] LABS: Hematocrit 35.4 % (37.0-47.0); Hemoglobin 10.8 g/dL (11.5-15.3)
[2022-04-12] MEDS: HYDROcodone-acetaminophen 5-325 mg Tablet 1 TAB PO (18:24)
[2022-04-12] MEDS: diphenhydrAMINE 25 mg Capsule PO (22:16)
[2022-04-12] MEDS: trazodone 50 mg Tablet PO (22:16)
[2022-04-13] VITALS (10 sets, daily range): BP systolic 112–171; BP diastolic 71–89; PULSE 61–84; RESP 6–18; TEMP 36.2–36.9; O2SAT 90–94
[2022-04-13] MEDS: metroNIDAZOLE IV 500 MG/100 ML PREMIX 100 MG IV ×3 (01:55→17:58)
[2022-04-13 03:59] LABS: Basophils % 0.4 %; Eosinophils # 0.2 10^3/uL (0.0-0.8); Eosinophils % 4.6 %; Hematocrit 28.9 % (37.0-47.0); Lymphocytes # 0.9 10^3/uL (0.8-4.8); Lymphocytes % 18.2 %; Mean Corpuscular HGB Conc 31.1 g/dL (30.0-36.0); Mean Corpuscular Hemoglobin 32.3 pg (28.0-34.0); Mean Corpuscular Volume 103.6 fl (81-99); Mean Platelet Volume 10.7 fL (7.4-10.4); Monocytes # 0.6 10^3/uL (0.2-0.9); Monocytes % 11.2 %; Neutrophils # 3.28 10^3/uL (1.8-7.7); Neutrophils % 65.4 %; Nucleated Red Blood Cells % 0 %; Platelet Count 161 10^3/cmm (130-400); Red Blood Count 2.79 10^6/uL (4.1-5.3); Red Cell Distribution Width 14.4 % (12.1-15.1)
[2022-04-13 04:24] LABS: Anion Gap 12.8 (5-19); Blood Urea Nitrogen 3 mg/dL (8-23); Carbon Dioxide 29 mmol/L (22-29); Chloride 104 mmol/L (98-107); Glucose 81 mg/dL (65-115); Magnesium 1.6 mg/dL (1.7-2.3); Osmolality Calculated 292 mOsm/kg (285-295); Sodium 143 mmol/L (136-145)
[2022-04-13 05:03] LABS: Potassium 2.8 mmol/L (3.5-5.1)
[2022-04-13] MEDS: magnesium sulfate premix 2 GM/50 ML PIGGYBACK IV (05:16)
[2022-04-13] MEDS: levothyroxine 137 mcg Tablet PO (05:19)
[2022-04-13] MEDS: lidocaine 1% 5 ML in potassium chloride premix 100 ML 25 ML IV (05:30)
[2022-04-13] MEDS: sodium chloride 0.9% 1,000 ML 75 ML IV ×2 (07:35→21:02)
[2022-04-13] MEDS: HYDROcodone-acetaminophen 5-325 mg Tablet 1 TAB PO ×2 (09:30→21:01)
[2022-04-13] MEDS: pantoprazole 40 mg SDV IVP ×2 (09:31→17:57)
[2022-04-13] MEDS: BuSPIRONE 10 mg Tablet 30 MG PO ×2 (09:31→17:56)
[2022-04-13] MEDS: levofloxacin-dextrose 5 % 500 MG/100 ML PREMIX 100 MG IV (09:32)
[2022-04-13] MEDS: verapamil ER 240 mg Tablet PO ×2 (09:42→17:56)
[2022-04-13 09:50] LABS: Hematocrit 31.3 % (37.0-47.0); Hemoglobin 9.8 g/dL (11.5-15.3)
[2022-04-13] MEDS: duloxetine 60 mg Capsule PO (11:32)
[2022-04-13] MEDS: oxybutynin 5 mg Tablet PO (11:32)
--- NOTE | 2022-04-13 11:56 | ANES.PREANE2 ---
Pre-Anesthetic Assessment Height/Weight: Height 1.5 m Weight 67.404 kg Temp Pulse Resp BP Pulse Ox 97.8 F 84 16 162/79 92 04/13/22 07:55 04/13/22 07:55 04/13/22 07:55 04/13/22 07:55 04/13/22 07:55 Operation Date: 04/13/22 14:00 Proposed Procedures p EGD(Not Applicable) - Ed Gamboa MD s Colonoscopy(Not Applicable) - Ed Gamboa MD Familial anesthetic complications: None Was Beta Donna taken within 24 hours: N/A Was Clonidine taken within 24 hours: N/A Social No alcohol and No tobacco Exam alert, oriented x 3, clear to auscultation bilaterally and regular rate & rhythm Airway Submandibular: within normal limits Cervical ROM: Other (Limited extension/flexion ) Mallampati: Class II Dentition: chipped Comments: Comments: Poor dentition Pulmonary Asthma CV/HEM Atrial Fibrillation, Anemia and Hypertension EKG 04/11/22 ?Interpretive Statements ATRIAL FIBRILLATION WITH ABERRANT CONDUCTION OR VENTRICULAR PREMATURE COMPLEXES LEFT AXIS DEVIATION? [QRS AXIS < -30] ST DEVIATION AND MODERATE T-WAVE ABNORMALITY, CONSIDER ANTEROLATERAL ISCHEMIA [-0.1+ mV T-WAVE IN V3-V6] ST DEVIATION AND MODERATE T-WAVE ABNORMALITY, CONSIDER INFERIOR ISCHEMIA ?[-0.1+ mV T-WAVE IN II/aVF] Compared to ECG 04/20/2020 18:30:06 Ventricular premature complex(es) now present Aberrant conduction of supraventricular beat(s) now present Left-axis deviation now present Left anterior fascicular block no longer present T-wave abnormality still present Possible ischemia still present Electronically Signed On 04-12-2022 23:38:51 CDT by Juan J Byrd M.D. [email or web address] Complain of genitourinary pain after urinary catheterization in ER Hepatic None reported GI Gastroesophageal Reflux Disease Hematochezia CT 04/08/22 CT/CT abdomen pelvis wo con [id number] IMPRESSION: ? 1.? Sigmoid diverticulosis. No evidence of acute diverticulitis. 2.? Circumferential soft tissue thickening with mild induration involving the rectum may be due to proctitis but neoplasm not excluded. Recommend follow-up sigmoidoscopy to exclude neoplasm. No definite visualized mass on this noncontrast examination. 3.? No evidence of small or large bowel obstruction. 4.? Stable supraumbilical fat-containing hernia. Small amount of adjacent fluid. 5.? Diffuse body wall anasarca. 6.? Bulky retrocrural and upper abdominal calcifications unchanged from prior examinations. Metabolic None reported Musc/skel None reported Neuropsych Cerebrovascular Accident Basilar artery aneurysm Anesthetic Plan ASA status: 3 Anesthesia: Anesthesia Evaluation, General and MAC Other: Discussed with patient conducting gentiourinary exam while under anesthesia given complaint of pain after urinary catheter placement in ED. Patient prefer to be examined while under anesthesia for endoscopy. I will coordinate this with GI team/Doctor Giurgus. Risk of > 500 ml blood loss (7ml/kg in children): No Medications/Allergies Home Medications Medication Instructions Recorded Confirmed Last Taken Type aspirin 81 mg tablet,delayed 81 mg PO BEDTIME 10/19/19 04/11/22 04/10/22 History release (Adult Low Dose Aspirin) docusate sodium 100 mg capsule 100 mg PO BID PRN 10/19/19 04/11/22 Unknown History (Colace) duloxetine 60 mg capsule,delayed 60 mg PO DAILY@12 10/19/19 04/11/22 04/11/22 History release hydrocodone 5 mg-acetaminophen 325 1 tab PO BID PRN 10/19/19 04/11/22 04/11/22 History mg tablet omega-3 fatty acids 1,000 mg 1,000 mg PO BID 10/19/19 04/11/22 04/11/22 History capsule terazosin 2 mg capsule 2 mg PO BID cap 10/19/19 04/11/22 04/11/22 History furosemide 20 mg tablet 20 mg PO DAILY PRN tab 04/10/20 04/11/22 Unknown History lisinopril 5 mg tablet 5 mg PO QAM 07/25/20 04/11/22 04/11/22 History verapamil 240 mg 24 hr 240 mg PO BID #180 cap 12/23/21 04/11/22 04/11/22 Rx capsule,extended release buspirone 30 mg tablet 30 mg PO BID 04/08/22 04/11/22 04/11/22 History diphenhydramine 25 2 tab PO BEDTIME 04/08/22 04/11/22 Unknown History mg-acetaminophen 500 mg tablet (Tylenol PM Extra Strength) multivitamin-ferrous 1 tab PO DAILY 04/08/22 04/11/22 Unknown History fumarate-folic acid 18 mg-400 mcg tablet (Centrum Women) trazodone 50 mg tablet 50 mg PO BEDTIME PRN 04/08/22 04/11/22 Unknown History levofloxacin 500 mg tablet 500 mg PO DAILY 7 Days #7 tab 04/09/22 04/11/22 04/11/22 Rx metronidazole 500 mg tablet 500 mg PO BID 7 Days #14 tab 04/09/22 04/11/22 04/11/22 Rx pantoprazole 40 mg tablet,delayed 40 mg PO BID 30 Days #60 tab 04/09/22 04/11/22 04/11/22 Rx release levothyroxine 137 mcg tablet 137 mcg PO QAM 04/11/22 04/11/22 04/11/22 History oxybutynin chloride 5 mg tablet 5 mg PO DAILY@12 04/11/22 04/11/22 04/11/22 History Allergies Allergy/AdvReac Type Severity Reaction Status Date / Time zolpidem [From Ambien] Allergy Severe ADR-Halluci Verified 04/11/22 18:45 nating propoxyphene [From Darvon] Allergy Unknown ADR-Nausea Verified 04/11/22 18:45 Current Medications Generic Name Dose Route Start Last Admin Trade Name Freq PRN Reason Stop Dose Admin Hydrocodone Bitart/Acetaminophen 1 tab 04/11/22 18:44 04/13/22 09:30 Hydrocodone-Acetaminophen 5-325 Mg Tablet PO 1 tab BID PRN Administration Pain Buspirone HCl 30 mg 04/11/22 18:44 04/13/22 09:31 Buspirone 10 Mg Tablet PO 30 mg BID ROBIN Administration Diphenhydramine HCl 25 mg 04/12/22 16:24 04/12/22 22:16 Diphenhydramine 25 Mg Capsule PO 25 mg BEDTIME PRN Administration SLEEP Duloxetine HCl 60 mg 04/12/22 12:00 04/13/22 11:32 Duloxetine 60 Mg Capsule PO 60 mg DAILY@12 ROBIN Administration Sodium Chloride 1,000 mls @ 75 mls/hr 04/11/22 17:45 04/13/22 07:35 Sodium Chloride 0.9% IV 75 mls/hr .[id number] ROBIN Administration Metronidazole 500 mg in 100 mls @ 100 mls/hr 04/11/22 18:44 04/13/22 11:29 Flagyl Iv IV 100 mls/hr Q8H ROBIN Administration Protocol Levofloxacin/Dextrose 500 mg in 100 mls @ 100 mls/hr 04/12/22 09:00 04/13/22 09:32 Levaquin-D5w IV 100 mls/hr DAILY ROBIN Administration Protocol Levothyroxine Sodium 137 mcg 04/12/22 06:00 04/13/22 05:19 Levothyroxine 137 Mcg Tablet PO 137 mcg QAM ROBIN Administration Ondansetron HCl 4 mg 04/11/22 17:33 04/12/22 14:04 Ondansetron 2 Mg/Ml Sdv 2 Ml IVP 4 mg Q8H PRN Administration vomiting, or N/V if npo Oxybutynin Chloride 5 mg 04/12/22 12:00 04/13/22 11:32 Oxybutynin 5 Mg Tablet PO 5 mg DAILY@12 ROBIN Administration Pantoprazole Sodium 40 mg 04/11/22 18:00 04/13/22 09:31 Pantoprazole 40 Mg Sdv IVP 40 mg BID ROBIN Administration Trazodone HCl 50 mg 04/11/22 18:44 04/12/22 22:16 Trazodone 50 Mg Tablet PO 50 mg BEDTIME PRN Administration Sleep Verapamil HCl 240 mg 04/11/22 18:44 04/13/22 09:42 Verapamil Er 240 Mg Tablet PO 240 mg BID ROBIN Administration PFSH Anesthesia Medical History Asthma Atrial fibrillation CHF (congestive heart failure) Dyslipidemia Essential hypertension Hematochezia Hypothyroidism 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 Sigmoid diverticulosis Statin intolerance TIA (transient ischemic attack) Surgical History S/P cholecystectomy S/P hysterectomy S/P lumpectomy of breast Family History Daughter Diabetes Father Cancer Mother Cancer Other CAD (coronary artery disease) Hypertension Stroke Social History Smoking and tobacco status: never smoked Alcohol intake: never Household members: spouse Marital status: Current occupational status: retired Data Anesthesia : 04/13/22 09:44 04/13/22 12:29 Short CBC 04/11/22 04/11/22 04/11/22 Range/Units 13:00 15:20 18:30 WBC 4.9 5.4 (4.0-10.0) 10^3/uL Hgb 10.6 L 8.4 L 9.0 L (11.5-15.3) g/dL Hct 33.4 L 27.3 L 28.7 L (37.0-47.0) % MCV 103.4 H 105.0 H (81-99) fl Plt Count 166 152 (130-400) 10^3/cmm Neut % (Auto) 76.0 76.8 % Neut # (Auto) 3.69 4.16 (1.8-7.7) 10^3/uL 04/12/22 04/12/22 04/12/22 Range/Units 02:35 08:30 17:22 WBC 5.2 (4.0-10.0) 10^3/uL Hgb 10.0 L 10.2 L 10.8 L (11.5-15.3) g/dL Hct 31.6 L 31.2 L 35.4 L (37.0-47.0) % MCV 103.6 H (81-99) fl Plt Count 168 (130-400) 10^3/cmm Neut % (Auto) 66.8 % Neut # (Auto) 3.49 (1.8-7.7) 10^3/uL 04/13/22 04/13/22 Range/Units 02:15 09:44 WBC 5.0 (4.0-10.0) 10^3/uL Hgb 9.0 L 9.8 L (11.5-15.3) g/dL Hct 28.9 L 31.3 L (37.0-47.0) % MCV 103.6 H (81-99) fl Plt Count 161 (130-400) 10^3/cmm Neut % (Auto) 65.4 % Neut # (Auto) 3.28 (1.8-7.7) 10^3/uL BMP 04/11/22 04/12/22 04/13/22 13:00 02:35 02:15 Sodium 139 139 143 Potassium 3.5 3.2 L 2.8 L* Chloride 101 103 104 Carbon Dioxide 28 28 29 BUN 6 L 7 L 3 L Creatinine 0.6 0.6 0.5 Glucose 112 89 81 Calcium 8.7 8.3 L 8.0 L Cardiac Enzymes 04/11/22 Range/Units 13:00 NT-Pro-B Natriuret Pep 1217 H (0-450) pg/mL Liver Function 04/11/22 04/12/22 Range/Units 13:00 02:35 Total Bilirubin 0.3 0.4 (0.15-1.2) mg/dL AST 16 16 (0-32) U/L ALT 10 7 (0-33) U/L Alkaline Phosphatase 50 45 (35-105) IU/L Albumin 3.5 3.3 L (3.5-5.2) g/dL Blood Bank 04/11/22 16:40 Blood Type B Positive Rho(D) Type Positive Antibody Screen Negative Coags 04/11/22 13:15 PT 14.70 INR 1.12 APTT 26.0 Cardiac Studies: No Data to Display
--- NOTE | 2022-04-13 12:05 | PM.PN ---
Subjective Subjective: Patient overall feels well. No bleeding per rectum yet H&H drifted down. Medications: Reviewed: Yes Vitals/I&O/Wt Last Vital Signs Temp 97.8 F 04/13/22 07:55 Pulse 84 04/13/22 07:55 Resp 16 04/13/22 07:55 BP 162/79 04/13/22 07:55 Pulse Ox 92 04/13/22 07:55 04/12/22 04/13/22 04/13/22 22:59 06:59 14:59 Intake Total 1301.25 / 2578.75 150 / 2728.75 696.25 / 696.25 Balance 1301.25 / 2578.75 150 / 2728.75 696.25 / 696.25 Weight last 48 hrs Weight 148 lb 9.6 oz Weight 150 lb Physical Exam Narrative: Patient is conscious alert oriented X3 No apparent distress BMI 30 Head and neck examination PERRLA no masses no cervical lymphadenopathy no jaundice Abdomen nontender nondistended soft no organomegaly guarding or rigidity/no signs of peritonitis Data : 04/13/22 09:44 04/13/22 02:15 A&P Assessment and plan (1) Lower GI bleed: Plan of care; After thorough history and physical examination and reviewing the chart, plan to perform a diagnostic esophagogastroduodenoscopy and diagnostic colonoscopy with possible biopsy and possible polypectomy. I discussed with the patient in detail the risks,benefits,alternatives and indications.The risk of aspiration, bleeding, soft tissue injury, perforation of the stomach/esophagus/colon and other potential concomitant complications were explained to the patient in details also the potential need for Thoracotomy and or Laproscoy/Laparotomy to repair any related complications including but not limited to colectomy and or Closotomy. The patient understood this well and did agree to proceed. Rationale was carefully and clearly discussed with the patient.Appropriate informed consent have been reviewed and signed Verbal and written Instructions were given to the patient for colonoscopy prep Assurance and education All questions have been answered and all concerns have been addressed to patient's satisfaction. 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
--- NOTE | 2022-04-13 12:16 | PM.PN ---
Subjective Subjective: Patient seen this morning. She did not have any more bloody bowel movements. Hemoglobin did drop about a gram since yesterday. She completed her bowel prep. Plan is to go for colonoscopy today around 2 PM. Hypokalemia and hypomagnesemia noted overnight. She was given IV magnesium and IV potassium. Vitals/I&O/Wt Last Vital Signs Temp 97.8 F 04/13/22 07:55 Pulse 84 04/13/22 07:55 Resp 16 04/13/22 07:55 BP 162/79 04/13/22 07:55 Pulse Ox 92 04/13/22 07:55 04/12/22 04/13/22 04/13/22 22:59 06:59 14:59 Intake Total 1301.25 / 2578.75 150 / 2728.75 696.25 / 696.25 Balance 1301.25 / 2578.75 150 / 2728.75 696.25 / 696.25 Weight last 48 hrs Weight 67.404 kg Weight 68.039 kg Physical Exam Narrative: General: Alert oriented x3, patient seen this morning. HEENT: Normocephalic, atraumatic, EOMI, breathing normally on room air Cardio: Regular rate rhythm, normal S1-S2, Respiratory: Good bilateral air entry, no wheezes no rhonchi appreciated GI: Abdomen soft, nontender, nondistended, bowel sounds + Extremities: Trace lower extremity edema, no cyanosis : Rectal exam done by general surgery at admission. Fresh blood noted. Data : 04/13/22 09:44 04/13/22 12:29 A&P Assessment and plan (1) Diverticulosis: Status: Acute (2) Diverticula of intestine: Status: Acute (3) Lower GI bleed: Status: Acute (4) Mixed stress and urge urinary incontinence: Status: Acute (5) Statin intolerance: Status: Acute (6) Dyslipidemia: Status: Acute Plan #Lower GI bleed most likely diverticular #Sigmoid diverticulosis #Atrial fibrillation, not on anticoagulation #Hypertension #Hypothyroidism #GERD #Dyslipidemia #History of CVA #CHF ? Monitor H&H every 8 hours ? Protonix 40 IV daily - Normal saline 75 cc/h ? Continue ciprofloxacin and Flagyl ? Continue levothyroxine ? Patient is rate controlled.? Continue verapamil to 40 twice daily ? General surgery consulted. -We will monitor hemoglobin.? Plan for colonoscopy today. ? Patient will potentially need enteroscopy versus IR embolization if needed.? If that need does occur she will need to be transferred to higher level of care.? Will discuss with family as well. CODE STATUS: DNR/DNI DVT prophylaxis: SCDs Attestations Medical Necessity Statement*: colonoscopy today. 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
[2022-04-13] MEDS: sodium chloride 0.9% 1,000 ML 30 ML IV (12:39)
[2022-04-13 13:22] LABS: Anion Gap 12.6 (5-19); Blood Urea Nitrogen 2 mg/dL (8-23); Calcium 8.4 mg/dL (8.5-10.5); Carbon Dioxide 28 mmol/L (22-29); Chloride 100 mmol/L (98-107); Glucose 81 mg/dL (65-115); Osmolality Calculated 279 mOsm/kg (285-295); Potassium 3.6 mmol/L (3.5-5.1); Sodium 137 mmol/L (136-145)
--- NOTE | 2022-04-13 14:31 | ANE.PACU2 ---
Documented by User: Satya Pool CRNA 04/13/22 14:31 Inpatient post-anesthesia follow up: Airway intact: Yes Vital signs: Temperature 97.6 F Pulse Rate 81 Respiratory Rate 16 Blood Pressure 163/84 Pulse Oximetry 92 Oxygen Delivery Me thod Room Air Oxygen Flow Rate Fraction of Inspir ed Oxygen Hydration adequate: Yes Nausea and vomiting: No Pain level: 1 Mental status: Baseline
--- NOTE | 2022-04-13 15:36 | PC.NURSE ---
return from egd and colonoscopy at 1500 via stretcher.alert and awake.denies pain.tolerated procedure well.
[2022-04-13 20:49] LABS: Hematocrit 27.8 % (37.0-47.0); Hemoglobin 8.9 g/dL (11.5-15.3)
[2022-04-13] MEDS: trazodone 50 mg Tablet PO (21:01)
[2022-04-13] MEDS: diphenhydrAMINE 25 mg Capsule PO (21:01)
[2022-04-14] VITALS (8 sets, daily range): BP systolic 117–194; BP diastolic 56–97; PULSE 71–119; RESP 16–17; TEMP 36.3–36.9; O2SAT 90–94
[2022-04-14] MEDS: metroNIDAZOLE IV 500 MG/100 ML PREMIX 100 MG IV ×2 (02:32→11:23)
[2022-04-14 04:08] LABS: Basophils % 0.6 %; Eosinophils # 0.4 10^3/uL (0.0-0.8); Eosinophils % 6.7 %; Hematocrit 29.2 % (37.0-47.0); Hemoglobin 8.8 g/dL (11.5-15.3); Lymphocytes # 0.9 10^3/uL (0.8-4.8); Lymphocytes % 17.5 %; Mean Corpuscular HGB Conc 30.1 g/dL (30.0-36.0); Mean Corpuscular Hemoglobin 32.1 pg (28.0-34.0); Mean Corpuscular Volume 106.6 fl (81-99); Mean Platelet Volume 10.6 fL (7.4-10.4); Monocytes # 0.6 10^3/uL (0.2-0.9); Monocytes % 10.8 %; Neutrophils # 3.33 10^3/uL (1.8-7.7); Neutrophils % 64.2 %; Nucleated Red Blood Cells % 0 %; Platelet Count 153 10^3/cmm (130-400); Red Blood Count 2.74 10^6/uL (4.1-5.3); Red Cell Distribution Width 14.5 % (12.1-15.1); White Blood Count 5.2 10^3/uL (4.0-10.0)
[2022-04-14 04:25] LABS: Anion Gap 11.3 (5-19); Blood Urea Nitrogen 4 mg/dL (8-23); Carbon Dioxide 26 mmol/L (22-29); Chloride 107 mmol/L (98-107); Glucose 84 mg/dL (65-115); Magnesium 1.8 mg/dL (1.7-2.3); Osmolality Calculated 288 mOsm/kg (285-295); Potassium 3.3 mmol/L (3.5-5.1); Sodium 141 mmol/L (136-145)
[2022-04-14] MEDS: levothyroxine 137 mcg Tablet PO (05:26)
--- NOTE | 2022-04-14 07:42 | PC.NURSE ---
I reported the high pb to the nurse 194/ 192/108
[2022-04-14] MEDS: BuSPIRONE 10 mg Tablet 30 MG PO (08:45)
[2022-04-14] MEDS: pantoprazole 40 mg SDV IVP (08:46)
[2022-04-14] MEDS: levofloxacin-dextrose 5 % 500 MG/100 ML PREMIX 100 MG IV (08:46)
[2022-04-14] MEDS: verapamil ER 240 mg Tablet PO (08:47)
--- NOTE | 2022-04-14 08:54 | PM.DCS ---
Discharge Providers Date of Admission: 04/11/22 17:18 Date of Discharge: April 14, 2022 Attending Provider at Admission: Giulia Irvin MD Attending Provider at Discharge: Giulia Irvin MD Primary Care Provider: Zaki Garcia MD Diagnoses at Discharge Discharge Diagnosis (1) Diverticulosis: Status: Acute (2) Diverticula of intestine: Status: Acute (3) Lower GI bleed: Status: Acute (4) Mixed stress and urge urinary incontinence: Status: Acute (5) Statin intolerance: Status: Acute (6) Dyslipidemia: Status: Acute Reason for Visit Reason for Visit: SYNCOPE; RECTAL BLEED Brief History: Kaylin Hdez is a 86 year old female with past medical history of atrial fibrillation, not on anticoagulation given recurrent falls, hypertension, hypothyroidism, GERD, dyslipidemia history of statin intolerance and 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 She is also having some abdominal discomfort.? She denies any nausea, vomiting, hematuria, epistaxis.? Patient recently was in the hospital on 08 April admitted for the same complaint.? Hemoglobin at that time was 11.? CT abdomen pelvis showed sigmoid diverticulitis this and circumferential soft tissue thickening with mild induration involving the rectum that may be due to proctitis but neoplasm not excluded.? She was monitored in the hospital did not require blood transfusion.? Hemoglobin stayed stable and therefore she was discharged home on Flagyl and levofloxacin.? During her hospital stay she was on IV antibiotics.? She was discharged home in stable condition and asked to follow-up with her surgeon for outpatient colonoscopy.? She had no further rectal bleeding.? Today she comes in with continued bleed and had a near syncopal episode prior to arrival.? EMS was called and she was brought to the hospital. ED course: On arrival blood pressure 143/80 Gar[place] rate 16, pulse 90, temperature 98.5, pulse ox 98% on room air.? Hemoglobin on arrival was 10.6 and 2 hours later was 8.4.? Case discussed with general surgery by ER doc.? We will admit at this time. Hospital Course Hospital Course Patient admitted for diverticular bleed/lower GI bleed. She continued to have bloody bowel movements which stabilized day 2 of hospital stay. sHe did not require transfusion. She ended up going for colonoscopy which had 1 bleeding polyp that was removed. Patient was asked to complete her ciprofloxacin and Flagyl to complete 7 days of therapy. She was discharged home in stable condition. She will follow-up with Dr. Gamboa as an outpatient. All questions answered. Physical Exam Narrative: General: Alert oriented x3, patient seen this morning. HEENT: Normocephalic, atraumatic, EOMI, breathing normally on room air Cardio: Regular rate rhythm, normal S1-S2, Respiratory: Good bilateral air entry, no wheezes no rhonchi appreciated GI: Abdomen soft, nontender, nondistended, bowel sounds + Extremities: Trace lower extremity edema, no cyanosis : Rectal exam done by general surgery at admission. Fresh blood noted. Discharge Data Studies Completed and Pending Pending at discharge Category Date Time Status Leukocyte Reduced RBC Stat Lab 04/11/22 16:40 Results Type and Screen Stat Lab 04/11/22 16:40 Results Pathology: Surgical [PTH] Routine Pth 04/13/22 14:27 Received Laboratory Results WBC 5.2 10^3/uL (4.0-10.0) 04/14/22 03:56 RBC 2.74 10^6/uL (4.1-5.3) L 04/14/22 03:56 Hgb 8.8 g/dL (11.5-15.3) L 04/14/22 03:56 Hct 29.2 % (37.0-47.0) L 04/14/22 03:56 MCV 106.6 fl (81-99) H 04/14/22 03:56 MCH 32.1 pg (28.0-34.0) 04/14/22 03:56 MCHC 30.1 g/dL (30.0-36.0) 04/14/22 03:56 RDW 14.5 % (12.1-15.1) 04/14/22 03:56 Plt Count 153 10^3/cmm (130-400) 04/14/22 03:56 MPV 10.6 fL (7.4-10.4) H 04/14/22 03:56 Neut % (Auto) 64.2 % 04/14/22 03:56 Lymph % (Auto) 17.5 % 04/14/22 03:56 Catron % (Auto) 10.8 % 04/14/22 03:56 Eos % (Auto) 6.7 % 04/14/22 03:56 Baso % (Auto) 0.6 % 04/14/22 03:56 Neut # (Auto) 3.33 10^3/uL (1.8-7.7) 04/14/22 03:56 Lymph # (Auto) 0.9 10^3/uL (0.8-4.8) 04/14/22 03:56 Catron # (Auto) 0.6 10^3/uL (0.2-0.9) 04/14/22 03:56 Eos # (Auto) 0.4 10^3/uL (0.0-0.8) 04/14/22 03:56 Baso # (Auto) 0.0 10^3/uL (0.0-0.1) 04/14/22 03:56 Nucleated RBC % (auto) 0 % 04/14/22 03:56 Nucleated RBCs # 0.0 /100WBC 04/14/22 03:56 PT 14.70 SECONDS (12.1-14.9) 04/11/22 13:15 INR 1.12 (0.8-1.2) 04/11/22 13:15 APTT 26.0 SECONDS (23.9-36.7) 04/11/22 13:15 Sodium 141 mmol/L (136-145) 04/14/22 03:56 Potassium 3.3 mmol/L (3.5-5.1) L 04/14/22 03:56 Chloride 107 mmol/L (98-107) 04/14/22 03:56 Carbon Dioxide 26 mmol/L (22-29) 04/14/22 03:56 Anion Gap 11.3 (5-19) 04/14/22 03:56 BUN 4 mg/dL (8-23) L 04/14/22 03:56 Creatinine 0.6 mg/dL (0.5-0.9) 04/14/22 03:56 GFR Calculation Not Reportable 04/14/22 03:56 Glucose 84 mg/dL (65-115) 04/14/22 03:56 Calculated Osmolality 288 mOsm/kg (285-295) 04/14/22 03:56 Calcium 8.0 mg/dL (8.5-10.5) L 04/14/22 03:56 Magnesium 1.8 mg/dL (1.7-2.3) 04/14/22 03:56 Total Bilirubin 0.4 mg/dL (0.15-1.2) 04/12/22 02:35 AST 16 U/L (0-32) 04/12/22 02:35 ALT 7 U/L (0-33) 04/12/22 02:35 Alkaline Phosphatase 45 IU/L (35-105) 04/12/22 02:35 NT-Pro-B Natriuret Pep 1217 pg/mL (0-450) H 04/11/22 13:00 Total Protein 5.3 g/dL (6.6-8.7) L 04/12/22 02:35 Albumin 3.3 g/dL (3.5-5.2) L 04/12/22 02:35 Globulin 2.0 g/dL (1.3-4.6) 04/12/22 02:35 Procalcitonin 0.04 ng/mL (0-0.5) 04/11/22 13:00 Blood Type B Positive 04/11/22 16:40 Rho(D) Type Positive 04/11/22 16:40 Antibody Screen Negative 04/11/22 16:40 Crossmatch See Detail 04/11/22 16:40 Vitals Last Vital Signs Temp 97.7 F 04/14/22 07:42 Pulse 96 04/14/22 07:42 Resp 16 04/14/22 07:42 BP 194/97 04/14/22 07:42 Pulse Ox 91 04/14/22 07:42 Discharge Plan Discharge Patient Disposition: Home Condition: Stable Prescriptions: Continued terazosin 2 mg capsule 2 mg PO BID 0RF omega-3 fatty acids 1,000 mg capsule 1,000 mg PO BID 0RF docusate sodium [Colace] 100 mg capsule 100 mg PO BID PRN (Reason: Constipation) 0RF hydrocodone-acetaminophen 5-325 mg tablet 1 tab PO BID PRN (Reason: Pain) 0RF duloxetine 60 mg capsule,delayed release(DR/EC) 60 mg PO DAILY@12 0RF furosemide 20 mg tablet 20 mg PO DAILY PRN (Reason: Edema) 0RF lisinopril 5 mg tablet 5 mg PO QAM 0RF verapamil 240 mg capsule,ext rel. pellets 24 hr 240 mg PO BID Qty: 180 3RF trazodone 50 mg Tablet 50 mg PO BEDTIME PRN (Reason: Sleep) 0RF buspirone 30 mg tablet 30 mg PO BID 0RF diphenhydramine-acetaminophen [Tylenol PM Extra Strength] 25-500 mg Tablet 2 tab PO BEDTIME 0RF Centrum Women 18-400 mg-mcg Tablet 1 tab PO DAILY 0RF pantoprazole 40 mg tablet,delayed release (DR/EC) 40 mg PO BID 30 Days Qty: 60 2RF oxybutynin chloride 5 mg tablet 5 mg PO DAILY@12 0RF levothyroxine 137 mcg tablet 137 mcg PO QAM 0RF metronidazole 500 mg tablet 500 mg PO BID 2 Days Qty: 4 0RF levofloxacin 500 mg tablet 500 mg PO DAILY 2 Days Qty: 2 0RF Held aspirin [Adult Low Dose Aspirin] 81 mg tablet,delayed release (DR/EC) 81 mg PO BEDTIME 0RF Hold Instructions: see primary care doctor before resuming Discharge Orders: Discharge Order (Routine); Ordered 04/14/22 Ordered By: Giulia Irvin Referrals: Ed Gamboa MD [Physician] - 05/13/22 2:50 pm (Your follow up appointment with Dr. Gamboa is on 05-13-22 at 2:50 pm. Please call [phone] if you have any questions or concerns. Thank you.) Zaki Gacria MD [Primary Care Provider] - 04/21/22 2:00 pm (Your follow up appointment with Dr. Garcia is on 04-21-22 at 2:00 pm. Please call [phone] if you have any questions or concerns. Thank you.) Discharge Diet: Cardiac and GI Soft Discharge Activity: Resume usual activity and Increase activity as tolerated Patient Instructions: Metronidazole (By mouth), Levofloxacin (By mouth), Hiatal Hernia (DC), Diverticulosis (DC), GI (Gastrointestinal) Soft Diet (DC), GI Discharge Instructions, Opioid Safety Discharge Attestations Time Spent in Discharge Care*: less than 30 min Status at Discharge: Cognitive status at discharge: cognitively intact, Behavioral status at discharge: cooperative, Quality Metrics Clinical Quality Measures [ No reported AMI, CVA or VTE this stay] Coding Level of Care Code Acute Chg FW DC note Diagnoses Diverticulosis K57.90 Diverticula of intestine K57.30 Lower GI bleed K92.2 Mixed stress and urge urinary incontinence N39.46 Statin intolerance Z78.9 Dyslipidemia E78.5
[2022-04-14] MEDS: potassium chloride ER 20 mEq Tablet 40 MEQ PO (09:12)
[2022-04-14] MEDS: duloxetine 60 mg Capsule PO (11:23)
[2022-04-14] MEDS: oxybutynin 5 mg Tablet PO (11:24)
[2022-04-14] MEDS: HYDROcodone-acetaminophen 5-325 mg Tablet 1 TAB PO (13:12)
--- NOTE | 2022-04-14 14:06 | PC.NURSE ---
Discharge instructions given and explained. Patient and caregiver verbalized understanding. Discharged via wheelchair to exit. Daughter to drive patient home.
--- NOTE | 2022-04-14 16:30 | PC.SOCIAL ---
IMM UPDATED IMM dated and initialed copy given to patient and copy placed in chart
== END 2022-04-14 14:07 | disposition home or self-care (01) | DRG 379 ==
LOC: ER 15:15 → MEDSURG 18:17
PROVIDERS: Surgery; Admitting Provider Internal Medicine; Emergency Provider Family Medicine; PCP Family Medicine; Visit Provider Internal Medicine
PROC: 0DJ08ZZ Inspection of Upper Intestinal Tract, Via Natural or Artificial Opening Endoscopic (ICD-10-PCS; CPT 43235; principal; 2022-04-13 14:00)
PROC: 0DJD8ZZ Inspection of Lower Intestinal Tract, Via Natural or Artificial Opening Endoscopic (ICD-10-PCS; CPT 45378; 2022-04-13 14:00)
DX: K57.31 Diverticulosis of large intestine without perforation or abscess with bleeding (principal); K63.5 Polyp of colon; I48.91 Unspecified atrial fibrillation; I50.9 Heart failure, unspecified; I11.0 Hypertensive heart disease with heart failure; E78.5 Hyperlipidemia, unspecified; E03.9 Hypothyroidism, unspecified; Z86.73 Personal history of transient ischemic attack (TIA), and cerebral infarction without residual deficits; K21.9 Gastro-esophageal reflux disease without esophagitis; I72.5 Aneurysm of other precerebral arteries; J45.909 Unspecified asthma, uncomplicated; Z66 Do not resuscitate; E87.6 Hypokalemia; E83.42 Hypomagnesemia; Z79.891 Long term (current) use of opiate analgesic
CPT/HCPCS: 36415; 43239; 45385; 80048; 80053; 83735; 83880; 84145; 85014; 85018; 85025; 85610; 85730; 86850; 86900; 86920; 88305; 93005; 96361; 96374; 99285; C9113; J1956; J2405; J2704; J3475; J3480; J7030; S0030

== ENCOUNTER 2022-04-19 14:11 | Observation (INO) | payer MEDICARE, MEDICAID, SELFPAY ==
[2022-04-19] VITALS (10 sets, daily range): BP systolic 101–186; BP diastolic 67–108; PULSE 74–122; RESP 14–20; TEMP 36.4–37.2; O2SAT 96–99
--- NOTE | 2022-04-19 14:34 | W.ED.GENADLT ---
HPI - General Adult General: Chief complaint: Weakness Stated complaint: weakness Time Seen by Provider: 04/19/22 14:31 History of Present Illness: Patient is a 86-year-old female with a history of atrial fibrillation, CHF, hypertension hyperlipidemia who presents the emergency room for concerns of generalized weakness and fatigue.Since 12:00, patient has been feeling increasingly weak and lightheaded. Patient tells me that she has difficulty with ambulation despite using a walker. Patient denies any active chest pain, shortness breath or palpitation, diarrhea/ hematochezia during the episode. Patient has no fever chills, cough, runny nose sore throat. Patient denies any urinary symptoms. Onset:noon Duration:ongoing Location:home Severity:moderate Associated symptoms: Reports malaise; Deny chest pain, dyspnea, nausea, rash, palpitations or vomiting Review of Systems Const: Reports: fatigue, malaise and other (+Generalized weakness); Denies: fever(s) or chills Eyes: Denies: change in vision ENMT: Denies: mouth pain Card: Denies: chest pain or palpitations Resp: Denies: dyspnea or non-productive cough GI: Denies: abdominal pain, nausea, vomiting or diarrhea : Denies: dysuria Musc: Denies: extremity pain Skin/Breast: Denies: rash or new lesions Neuro: Denies: weakness in extremities Psych: Reports: other (Normal mood) Marlo/Lymph: Denies: easy bruising PFS ED PFSH: Medical History Asthma Atrial fibrillation CHF (congestive heart failure) Dyslipidemia Essential hypertension Hematochezia Hypothyroidism 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 Sigmoid diverticulosis Statin intolerance TIA (transient ischemic attack) Surgical History S/P cholecystectomy S/P hysterectomy S/P lumpectomy of breast Family History Daughter Diabetes Father Cancer Mother Cancer Other CAD (coronary artery disease) Hypertension Stroke Social History Smoking and tobacco status: never smoked Alcohol intake: never Household members: spouse Marital status: Current occupational status: retired Physical Exam Const: COMMON NORMALS: alert HENMT: COMMON NORMALS: atraumatic HEAD & SCALP: atraumatic MOUTH: moist mucous membranes not abnormal Eye: COMMON NORMALS: EOMs intact bilaterally and conjunctivae normal CONJUNCTIVA: Yes conjunctivae normal Neck/C-Spine: COMMON NORMALS: full ROM and supple Resp: COMMON NORMALS: normal respiratory effort and clear to auscultation bilaterally AUSCULTATION: clear to auscultation bilaterally Cardio: OTHER: +irregularly irregular rhythm GI: COMMON NORMALS: Soft to palpation and non-tender PALPATION: Yes Soft to palpation Extremity: COMMON NORMALS: full ROM Neuro: SENSORIUM/ORIENTATION: Yes alert MOTOR EXAM: No Abnormal motor strength present and Other motor observations present (no focal motor deficits) Psych: COMMON NORMALS: speech normal SPEECH: Yes normal speech MOOD & AFFECT: Yes euthymic mood Course Vital Signs: Vital signs: Vital Signs Temperature 99.0 F 04/19/22 14:32 Pulse Rate 122 H 04/19/22 14:32 Respiratory Rate 16 04/19/22 14:32 Blood Pressure 101/82 04/19/22 14:32 Pulse Oximetry 96 04/19/22 14:32 MDM - General Adult Medical Decision Making 86-year-old female history of CAD, atrial fibrillation, CHF, hyperlipidemia presenting to the emergency room for complaints generalized weakness, fatigue and lightheadedness since 12pm. On exam, patient is hemodynamically stable with irregularly irregular rhythm. Patient is noted to be in atrial fib between 80-120 in heart rate. She has no active complaints of chest pain. EKG is nonischemic. Troponin within normal limit. Patient was noted to be in A. fib that improved without any intervention. Patient continues to report lightheadedness despite IVF. Patient will be admitted to hospital for further work-up this time. CT head, x-ray chest negative for any acute findings. Disposition: admission Lab Data : 04/19/22 16:05 04/19/22 16:05 Radiology Impressions Chest X-Ray 04/19/22 14:49 IMPRESSION: 1. Somewhat prominent and tortuous thoracic aorta. 2. Slightly enlarged cardiac silhouette size with no obvious vascular congestion or obvious lung consolidation. 3. Other findings as above. Head CT 04/19/22 14:49 IMPRESSION: 1. No acute intracranial findings. 2. 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 See discussion above. Laboratory Results WBC 5.9 10^3/uL (4.0-10.0) 04/19/22 16:05 RBC 3.17 10^6/uL (4.1-5.3) L 04/19/22 16:05 Hgb 10.3 g/dL (11.5-15.3) L 04/19/22 16:05 Hct 31.4 % (37.0-47.0) L 04/19/22 16:05 MCV 99.1 fl (81-99) H 04/19/22 16:05 MCH 32.5 pg (28.0-34.0) 04/19/22 16:05 MCHC 32.8 g/dL (30.0-36.0) 04/19/22 16:05 RDW 14.7 % (12.1-15.1) 04/19/22 16:05 Plt Count 239 10^3/cmm (130-400) 04/19/22 16:05 MPV 10.2 fL (7.4-10.4) 04/19/22 16:05 Neut % (Auto) 78.1 % 04/19/22 16:05 Lymph % (Auto) 10.3 % 04/19/22 16:05 Summers % (Auto) 10.2 % 04/19/22 16:05 Eos % (Auto) 0.8 % 04/19/22 16:05 Baso % (Auto) 0.3 % 04/19/22 16:05 Neut # (Auto) 4.61 10^3/uL (1.8-7.7) 04/19/22 16:05 Lymph # (Auto) 0.6 10^3/uL (0.8-4.8) L 04/19/22 16:05 Summers # (Auto) 0.6 10^3/uL (0.2-0.9) 04/19/22 16:05 Eos # (Auto) 0.1 10^3/uL (0.0-0.8) 04/19/22 16:05 Baso # (Auto) 0.0 10^3/uL (0.0-0.1) 04/19/22 16:05 Nucleated RBC % (auto) 0 % 04/19/22 16:05 Nucleated RBCs # 0.0 /100WBC 04/19/22 16:05 Sodium 137 mmol/L (136-145) 04/19/22 16:05 Chloride 98 mmol/L (98-107) 04/19/22 16:05 Carbon Dioxide 28 mmol/L (22-29) 04/19/22 16:05 Anion Gap 14.2 (5-19) 04/19/22 16:05 BUN 10 mg/dL (8-23) 04/19/22 16:05 Creatinine 0.7 mg/dL (0.5-0.9) 04/19/22 16:05 GFR Calculation Not Reportable 04/19/22 16:05 Glucose 97 mg/dL (65-115) 04/19/22 16:05 Calcium 9.0 mg/dL (8.5-10.5) 04/19/22 16:05 Total Bilirubin 0.4 mg/dL (0.15-1.2) 04/19/22 16:05 AST 15 U/L (0-32) 04/19/22 16:05 ALT 10 U/L (0-33) 04/19/22 16:05 Alkaline Phosphatase 48 IU/L (35-105) 04/19/22 16:05 Albumin 3.8 g/dL (3.5-5.2) 04/19/22 16:05 Globulin 2.3 g/dL (1.3-4.6) 04/19/22 16:05 Lipase 21 U/L (13-60) 04/19/22 16:05 Imaging Data Other Imaging: Radiologist's impression: [place] [address] CT Scan Report Signed Patient: Kaylin Hdez Unit #: [id number] : 1935 Age/Sex: 86 / F ADM Date: 04/19/22 Loc: ER Room/Bed: Attending Dr: Ordering Provider/Ordering MD: Marichuy Maddox MD Date of Service: 04/19/22 Procedure(s): CT head wo con* [id number] Accession Number(s): [id number] Report Number: [id number] PROCEDURE INFORMATION: Exam: CT Head Without Contrast Exam date and time: 04/19/2022 3:13 PM Age: 86 years old Clinical indication: Dizziness; Additional info: Light-headedness TECHNIQUE: Imaging protocol: Computed tomography of the head without contrast. Radiation optimization: All CT scans at this facility use at least one of these dose optimization techniques: automated exposure control; mA and/or kV adjustment per patient size (includes targeted exams where dose is matched to clinical indication); or iterative reconstruction. COMPARISON: 1. MR head wo con* [id number] 02/14/2019 9:[address] head wo con* [id number] 04/20/2020 6:29 PM RADIATION DOSE METRICS: Total DLP (mGy-cm): 905.33 FINDINGS: Brain: Mild hypodense changes are noted in the bilateral periventricular regions, likely related to chronic microvascular ischemic disease. There is mild brain parenchymal atrophy. No acute intracranial hemorrhage, mass effect or midline shift. Cerebral ventricles: No pathologic ventricular dilatation. Paranasal sinuses: Visualized sinuses are unremarkable. No fluid levels. Mastoid air cells: Visualized mastoid air cells are well aerated. Bones/joints: Unremarkable. No acute fracture. Soft tissues: Unremarkable. Vasculature: Again seen is a nodular focus measuring about 8 mm in the region of basilar artery tip consistent with previously demonstrated basilar tip aneurysm, probably with minimal change. 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 Reassessment by CTA or MRA may be obtained if precise assessment and interval comparison.? are required. CT/CT head wo con* [id number] IMPRESSION: 1. No acute intracranial findings. 2. 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 See discussion above. ? Dictated By: Iwona Rose MD Signed By: Iwona Rose MD Signed Date/Time: 04/19/22 1616 DD/ [address] [address] XRay Report Signed Patient: Kaylin Hdez Unit #: [id number] : 1935 Age/Sex: 86 / F ADM Date: 04/19/22 Loc: ER Room/Bed: Attending Dr: Ordering Provider/Ordering MD: Marichuy Maddox MD Date of Service: 04/19/22 Procedure(s): XR chest 1V portable [id number] Accession Number(s): [id number] Report Number: [id number] PROCEDURE INFORMATION: Exam: XR Chest Exam date and time: 04/19/2022 2:57 PM Age: 86 years old Clinical indication: Dyspnea; Additional info: Light-headedness TECHNIQUE: Imaging protocol: Radiologic exam of the chest. Views: 1 view. COMPARISON: CR XR chest 1V portable [id number] 04/20/2020 6:25 PM FINDINGS: Lungs:? No obvious lung consolidation however the lung bases are suboptimally assessed. Pleural spaces: Unremarkable. No pleural effusion. No pneumothorax. Heart/Mediastinum: Cardiac silhouette is mildly enlarged, stable. No obvious vascular congestion. Prominent calcifications are noted projecting near the GE junction region. Large calcification was described in the upper abdomen on prior CT exam report July 2012. Images are not available for direct comparison. Reassessment by CT may be obtained if clinically indicated. Vasculature: Tortuous thoracic aorta. Calcified aortic arch which is probably mildly aneurysmal. Chest CT assessment may be obtained if clinically indicated. Bones/joints: Osteopenia. XR/XR chest 1V portable [id number] IMPRESSION: 1. Somewhat prominent and tortuous thoracic aorta. 2. Slightly enlarged cardiac silhouette size with no obvious vascular congestion or obvious lung consolidation. 3. Other findings as above. ? Dictated By: Iwona Rose MD Signed By: Iwona Rose MD Signed Date/Time: 04/19/22 1610 DD/ 1457 Discharge Plan Discharge Patient Disposition: Admitted As Inpatient Clinical Impression: Generalized weakness, Light headedness, Atrial fibrillation Condition: Stable Coding Level of Care Code ED Manager Data Warehouse for Chg Fwd Exam Comprehensive
--- NOTE | 2022-04-19 14:49 | XRR_ITS ---
PROCEDURE INFORMATION: Exam: XR Chest Exam date and time: 04/19/2022 2:57 PM Age: 86 years old Clinical indication: Dyspnea; Additional info: Light-headedness TECHNIQUE: Imaging protocol: Radiologic exam of the chest. Views: 1 view. COMPARISON: CR XR chest 1V portable [id number] 04/20/2020 6:25 PM FINDINGS: Lungs: No obvious lung consolidation however the lung bases are suboptimally assessed. Pleural spaces: Unremarkable. No pleural effusion. No pneumothorax. Heart/Mediastinum: Cardiac silhouette is mildly enlarged, stable. No obvious vascular congestion. Prominent calcifications are noted projecting near the GE junction region. Large calcification was described in the upper abdomen on prior CT exam report July 2012. Images are not available for direct comparison. Reassessment by CT may be obtained if clinically indicated. Vasculature: Tortuous thoracic aorta. Calcified aortic arch which is probably mildly aneurysmal. Chest CT assessment may be obtained if clinically indicated. Bones/joints: Osteopenia. XR/XR chest 1V portable [id number] IMPRESSION: 1. Somewhat prominent and tortuous thoracic aorta. 2. Slightly enlarged cardiac silhouette size with no obvious vascular congestion or obvious lung consolidation. 3. Other findings as above.
--- NOTE | 2022-04-19 14:49 | ECG_ITS ---
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 Measurements Intervals [place] Rate: 90 P: [place]: QRS: -56 QRSD: 120 T: 153 QT: 372 QTc: 457 Interpretive Statements ATRIAL FIBRILLATION LEFT AXIS DEVIATION [QRS AXIS < -30] MODERATE INTRAVENTRICULAR CONDUCTION DELAY [110+ ms QRS DURATION] NONSPECIFIC T-WAVE ABNORMALITY Compared to ECG 04/19/2022 16:44:02 Possible ischemia no longer present T-wave abnormality still present Electronically Signed On 04-20-2022 8:08:46 CDT by Juan J Byrd M.D. [id number]
--- NOTE | 2022-04-19 14:49 | CTR_ITS ---
PROCEDURE INFORMATION: Exam: CT Head Without Contrast Exam date and time: 04/19/2022 3:13 PM Age: 86 years old Clinical indication: Dizziness; Additional info: Light-headedness TECHNIQUE: Imaging protocol: Computed tomography of the head without contrast. Radiation optimization: All CT scans at this facility use at least one of these dose optimization techniques: automated exposure control; mA and/or kV adjustment per patient size (includes targeted exams where dose is matched to clinical indication); or iterative reconstruction. COMPARISON: 1. MR head wo con* [id number] 02/14/2019 9:[address] head wo con* [id number] 04/20/2020 6:29 PM RADIATION DOSE METRICS: Total DLP (mGy-cm): 905.33 FINDINGS: Brain: Mild hypodense changes are noted in the bilateral periventricular regions, likely related to chronic microvascular ischemic disease. There is mild brain parenchymal atrophy. No acute intracranial hemorrhage, mass effect or midline shift. Cerebral ventricles: No pathologic ventricular dilatation. Paranasal sinuses: Visualized sinuses are unremarkable. No fluid levels. Mastoid air cells: Visualized mastoid air cells are well aerated. Bones/joints: Unremarkable. No acute fracture. Soft tissues: Unremarkable. Vasculature: Again seen is a nodular focus measuring about 8 mm in the region of basilar artery tip consistent with previously demonstrated basilar tip aneurysm, probably with minimal change. 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 Reassessment by CTA or MRA may be obtained if precise assessment and interval comparison. are required. CT/CT head wo con* [id number] IMPRESSION: 1. No acute intracranial findings. 2. 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 See discussion above.
[2022-04-19 16:20] LABS: Basophils % 0.3 %; Eosinophils # 0.1 10^3/uL (0.0-0.8); Eosinophils % 0.8 %; Hematocrit 31.4 % (37.0-47.0); Hemoglobin 10.3 g/dL (11.5-15.3); Lymphocytes # 0.6 10^3/uL (0.8-4.8); Lymphocytes % 10.3 %; Mean Corpuscular HGB Conc 32.8 g/dL (30.0-36.0); Mean Corpuscular Hemoglobin 32.5 pg (28.0-34.0); Mean Corpuscular Volume 99.1 fl (81-99); Mean Platelet Volume 10.2 fL (7.4-10.4); Monocytes # 0.6 10^3/uL (0.2-0.9); Monocytes % 10.2 %; Neutrophils # 4.61 10^3/uL (1.8-7.7); Neutrophils % 78.1 %; Nucleated Red Blood Cells % 0 %; Platelet Count 239 10^3/cmm (130-400); Red Blood Count 3.17 10^6/uL (4.1-5.3); Red Cell Distribution Width 14.7 % (12.1-15.1); White Blood Count 5.9 10^3/uL (4.0-10.0)
[2022-04-19] MEDS: sodium chloride 0.9% 500 ML IV (16:49)
--- NOTE | 2022-04-19 16:49 | ECG_ITS ---
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 Measurements Intervals [place] Rate: 94 P: [place]: QRS: -56 QRSD: 114 T: 164 QT: 374 QTc: 469 Interpretive Statements ATRIAL FIBRILLATION LEFT AXIS DEVIATION [QRS AXIS < -30] MODERATE INTRAVENTRICULAR CONDUCTION DELAY [105+ ms QRS DURATION, 80+ ms Q/S IN V1/V2, NO Q AND 60+ ms R IN I/aVL/V5/V6] ST DEVIATION AND MODERATE T-WAVE ABNORMALITY, CONSIDER LATERAL ISCHEMIA [-0.1+ mV T-WAVE IN I/aVL/V5/V6] Compared to ECG 04/11/2022 13:05:38 Intraventricular conduction delay now present Ventricular premature complex(es) no longer present Aberrant conduction of supraventricular beat(s) no longer present T-wave abnormality still present Possible ischemia still present Electronically Signed On 04-20-2022 18:14:01 CDT by Juan J Byrd M.D. [id number]
[2022-04-19 17:21] LABS: Alanine Aminotransferase 10 U/L (0-33); Albumin Level 3.8 g/dL (3.5-5.2); Alkaline Phosphatase 48 IU/L (35-105); Anion Gap 14.2 (5-19); Aspartate Amino Transferase 15 U/L (0-32); Blood Urea Nitrogen 10 mg/dL (8-23); Carbon Dioxide 28 mmol/L (22-29); Chloride 98 mmol/L (98-107); Globulin 2.3 g/dL (1.3-4.6); Glucose 97 mg/dL (65-115); Lipase 21 U/L (13-60); Osmolality Calculated 283 mOsm/kg (285-295); Potassium 3.2 mmol/L (3.5-5.1); Sodium 137 mmol/L (136-145); Total Bilirubin 0.4 mg/dL (0.15-1.2); Total Protein 6.1 g/dL (6.6-8.7)
[2022-04-19 17:26] LABS: Troponin(5th) Baseline 20 ng/L (0-10)
[2022-04-19 17:31] LABS: Free T4 Free Thyroxine 1.61 ng/dL (0.82-1.77); Thyroid Stimulating Hormone 0.71 uIU/mL (0.27-4.20)
--- NOTE | 2022-04-19 17:34 | PM.HP ---
Providers/Chief Complaint Primary Care Provider: Zaki Garcia MD Chief Complaint: weakness History of Present Illness Kaylin Hdez is a 86 year old female who was recently discharged from the hospital after management evaluation of GI bleed, she carries history of A. fib RVR, she has been on verapamil, she was advised push enteroscopy GI scopes were unremarkable for acute bleed, presented with chief complaint of generalized weakness and low blood pressure. Patient stating that she took her blood pressure twice which was low she is not able to tell me the number, she was feeling extremely fatigued and tired was not able to get up from couch. She has not missed any of her medications. No recent chest pain endorsing shortness of breath on exertion. No recent GI bleed. In the ER she was diagnosed with hypotension and required small fluid bolus which improved her blood pressure, I gave her a low-dose of Cardizem IV push. Currently heart rate has improved from 122 to 88 She is hemodynamically stable Will monitor her overnight Review of Systems Const: Denies: fever(s) Eyes: Denies: change in vision ENMT: Denies: throat pain Card: Denies: chest pain Resp: Reports: dyspnea GI: Denies: abdominal pain : Denies: flank pain Musc: Denies: neck pain Skin/Breast: Denies: rash Neuro: Denies: headache(s) Psych: Denies: anxiety Endo: Denies: polyuria [place]/Lymph: Denies: easy bruising All/Imm: Denies: urticaria Medications/Allergies Home Medications Medication Instructions Recorded Confirmed Last Taken Type aspirin 81 mg tablet,delayed 81 mg PO BEDTIME 10/19/19 04/19/22 04/18/22 History release (Adult Low Dose Aspirin) docusate sodium 100 mg capsule 100 mg PO BID PRN 10/19/19 04/19/22 Unknown History (Colace) duloxetine 60 mg capsule,delayed 60 mg PO DAILY@12 10/19/19 04/19/22 04/19/22 History release hydrocodone 5 mg-acetaminophen 325 1 tab PO BID PRN 10/19/19 04/19/22 04/19/22 History mg tablet omega-3 fatty acids 1,000 mg 1,000 mg PO BID 10/19/19 04/19/22 04/19/22 History capsule terazosin 2 mg capsule 2 mg PO BID cap 10/19/19 04/19/22 04/19/22 History furosemide 20 mg tablet 20 mg PO DAILY PRN tab 04/10/20 04/19/22 Unknown History lisinopril 5 mg tablet 5 mg PO QAM 07/25/20 04/19/22 04/19/22 History verapamil 240 mg 24 hr 240 mg PO BID #180 cap 12/23/21 04/19/22 04/19/22 Rx capsule,extended release buspirone 30 mg tablet 30 mg PO BID 04/08/22 04/19/22 04/19/22 History diphenhydramine 25 2 tab PO BEDTIME 04/08/22 04/19/22 04/18/22 History mg-acetaminophen 500 mg tablet (Tylenol PM Extra Strength) multivitamin-ferrous 1 tab PO DAILY 04/08/22 04/19/22 04/19/22 History fumarate-folic acid 18 mg-400 mcg tablet (Centrum Women) trazodone 50 mg tablet 50 mg PO BEDTIME PRN 04/08/22 04/19/22 04/18/22 History pantoprazole 40 mg tablet,delayed 40 mg PO BID 30 Days #60 tab 04/09/22 04/19/22 04/19/22 Rx release levothyroxine 137 mcg tablet 137 mcg PO QAM 04/11/22 04/19/22 04/19/22 History oxybutynin chloride 5 mg tablet 5 mg PO DAILY@12 04/11/22 04/19/22 04/19/22 History ascorbic acid (vitamin C) 500 mg 500 mg PO DAILY 04/19/22 04/19/22 04/19/22 History tablet (Vitamin C) cholecalciferol (vitamin D3) 25 25 mcg PO DAILY 04/19/22 04/19/22 04/19/22 History mcg (1,000 unit) capsule (Vitamin D3) cyanocobalamin (vitamin B-12) 50 50 mcg PO DAILY 04/19/22 04/19/22 04/19/22 History mcg tablet (Vitamin B-12) Allergies Allergy/AdvReac Type Severity Reaction Status Date / Time zolpidem [From Ambien] Allergy Severe ADR-Halluci Verified 04/11/22 18:45 nating propoxyphene [From Darvon] Allergy Unknown ADR-Nausea Verified 04/11/22 18:45 PFSH Acute PFSH: Medical History (Updated 04/19/22 @ 19:02 by Flor Cox MD) Asthma Atrial fibrillation CHF (congestive heart failure) Diverticula of intestine Dyslipidemia Essential hypertension Hematochezia Hypothyroidism 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 Sigmoid diverticulosis Statin intolerance TIA (transient ischemic attack) Surgical History S/P cholecystectomy S/P hysterectomy S/P lumpectomy of breast Family History Daughter Diabetes Father Cancer Mother Cancer Other CAD (coronary artery disease) Hypertension Stroke Social History Smoking and tobacco status: never smoked Alcohol intake: never Household members: spouse Marital status: Current occupational status: retired Vitals/I&O/Wt Last Vital Signs Temp 99.0 F 04/19/22 14:32 Pulse 122 H 04/19/22 14:32 Resp 16 04/19/22 14:32 BP 101/82 04/19/22 14:32 Pulse Ox 96 04/19/22 14:32 Physical Exam Narrative: Patient clinically looks euvolemic Pleasant and cooperative Currently on room air A. fib without RVR Abdomen soft No audible stridor or wheezing Lower extremity without edema Awake and alert No signs of stroke No skin ulcers Data : 04/19/22 16:05 04/19/22 16:05 A&P Assessment and plan (1) Generalized weakness: Status: Acute (2) Light headedness: Status: Acute (3) Atrial fibrillation: Status: Acute Plan Generalized weakness and fatigue Most likely related to tachyarrhythmia She was in A. fib RVR at the time of admission, improved with fluid resuscitation and low-dose of Cardizem For now I would like to watch her on verapamil 240 mg daily instead of twice a day If she remains hypotensive we might switch to amiodarone Currently looks euvolemic No recent chest pain, no recent diarrhea She is compliant with her medication Lives with her family She is DNR/DNI I will keep her on cardiac diet Check magnesium, TSH, Hold diuretics for now No GI bleed, hemoglobin stable Replenish potassium for hypokalemia Check magnesium Attestations Medical Necessity Statement*: Anticipating discharge within 48 hours needing monitoring to adjust her medications for hypertension A. fib RVR Time Spent in Patient Care: 30 Coding Level of Care Code Acute Vascular Radiologist for Chg Fwd Diagnoses Generalized weakness R53.1 Light headedness R42 Atrial fibrillation I48.91
[2022-04-19] MEDS: dilTIAZem 5 mg/mL SDV 5 mL IVP (17:45)
--- NOTE | 2022-04-19 19:00 | PC.NURSE ---
Accidentally charted discharge assessment and discharge charges on wrong patient.
[2022-04-19] MEDS: trazodone 50 mg Tablet PO (22:26)
[2022-04-19] MEDS: pantoprazole DR 40 mg Tablet PO (22:26)
[2022-04-19] MEDS: potassium chloride ER 20 mEq Tablet 40 MEQ PO (22:26)
[2022-04-20] VITALS: BP 158/89; PULSE 101; RESP 20; TEMP 36.3; O2SAT 96
[2022-04-20 03:18] VITALS: PULSE 89; RESP 16; O2SAT 98
[2022-04-20 04:00] VITALS: BP 152/77; PULSE 101; RESP 20; TEMP 36.2; O2SAT 94
[2022-04-20 04:14] LABS: Basophils % 0.5 %; Eosinophils # 0.2 10^3/uL (0.0-0.8); Eosinophils % 3.2 %; Hematocrit 28.4 % (37.0-47.0); Hemoglobin 9.4 g/dL (11.5-15.3); Lymphocytes # 0.9 10^3/uL (0.8-4.8); Lymphocytes % 16.6 %; Mean Corpuscular HGB Conc 33.1 g/dL (30.0-36.0); Mean Corpuscular Hemoglobin 32.8 pg (28.0-34.0); Mean Platelet Volume 10.4 fL (7.4-10.4); Monocytes # 0.8 10^3/uL (0.2-0.9); Monocytes % 14.1 %; Neutrophils # 3.65 10^3/uL (1.8-7.7); Neutrophils % 65.4 %; Nucleated Red Blood Cells % 0 %; Platelet Count 222 10^3/cmm (130-400); Red Blood Count 2.87 10^6/uL (4.1-5.3); Red Cell Distribution Width 14.9 % (12.1-15.1); White Blood Count 5.6 10^3/uL (4.0-10.0)
[2022-04-20 04:42] LABS: Anion Gap 10.2 (5-19); Blood Urea Nitrogen 9 mg/dL (8-23); Calcium 8.4 mg/dL (8.5-10.5); Carbon Dioxide 30 mmol/L (22-29); Chloride 104 mmol/L (98-107); Glucose 89 mg/dL (65-115); Magnesium 1.8 mg/dL (1.7-2.3); Osmolality Calculated 290 mOsm/kg (285-295); Potassium 3.2 mmol/L (3.5-5.1); Sodium 141 mmol/L (136-145)
[2022-04-20 05:37] VITALS: PULSE 98
[2022-04-20] MEDS: levothyroxine 137 mcg Tablet PO (05:56)
--- NOTE | 2022-04-20 07:30 | PC.NURSE ---
Bedside report received from Monica RODRIGUEZ at tis time.
[2022-04-20 08:00] VITALS: BP 149/86; PULSE 90; PULSE 97; RESP 15; RESP 18; TEMP 36.4; O2SAT 90; O2SAT 96
[2022-04-20] MEDS: pantoprazole DR 40 mg Tablet PO (08:33)
[2022-04-20] MEDS: lisinopril 5 mg Tablet PO (08:33)
--- NOTE | 2022-04-20 08:53 | PC.NURSE ---
Pt did not have IV at change of shift 0700 04/20/2022
[2022-04-20] MEDS: potassium chloride oral liq 20 mEq/15 mL UDC 40 MEQ PO (09:01)
[2022-04-20] MEDS: verapamil ER 240 mg Tablet PO (09:02)
--- NOTE | 2022-04-20 09:25 | PM.DCS ---
Discharge Providers Date of Admission: 04/19/22 17:12 Date of Discharge: April 20, 2022 Attending Provider at Admission: Flor Cox MD Attending Provider at Discharge: Flor Cox MD Primary Care Provider: Zaki Garcia MD Diagnoses at Discharge Discharge Diagnosis (1) Generalized weakness: Status: Acute (2) Light headedness: Status: Acute (3) Atrial fibrillation: Status: Acute Reason for Visit Reason for Visit: weakness Hospital Course Hospital Course 86-year female who was recently discharged from the hospital after management of GI bleed, she was recommended push enteroscopy, this time she presented with generalized weakness and fatigue. Hemoglobin is stable. She was hypotensive in the ER required IV fluid hydration. Her verapamil dose was decreased to once a day instead of twice a day. Her blood pressure improved she remained asymptomatic throughout her hospitalization. She will be discharged on 04/20. I have asked patient to cut back on her verapamil dose to once daily and keep on using her Lasix with potassium supplement. Her potassium was repleted before her discharge from the hospital. I did financial health counselor patient not to take her lisinopril , verapamil or Lasix in case of low blood pressure systolic blood pressure below 100 mmHg Ideally for her age she should be okay with blood pressure of 130s to 140s systolic. Physical Exam Narrative: Pleasant cooperative No focal deficit Satting well on room air Looks euvolemic Abdomen soft Variable S1-S2 Discharge Data Studies Completed and Pending Completed Studies During Hospitalization Category Date Time Status CT head wo con* [id number] Urgent Cat Scan 04/19/22 14:49 Completed XR chest 1V portable [id number] Urgent Exams 04/19/22 14:49 Completed Radiology Impressions Chest X-Ray 04/19/22 14:49 IMPRESSION: 1. Somewhat prominent and tortuous thoracic aorta. 2. Slightly enlarged cardiac silhouette size with no obvious vascular congestion or obvious lung consolidation. 3. Other findings as above. Head CT 04/19/22 14:49 IMPRESSION: 1. No acute intracranial findings. 2. 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 See discussion above. Laboratory Results WBC 5.6 10^3/uL (4.0-10.0) 04/20/22 03:28 RBC 2.87 10^6/uL (4.1-5.3) L 04/20/22 03:28 Hgb 9.4 g/dL (11.5-15.3) L 04/20/22 03: Hct 28.4 % (37.0-47.0) L 04/20/22 03: MCV 99.0 fl (81-99) 04/20/22 03: MCH 32.8 pg (28.0-34.0) 04/20/22 03: MCHC 33.1 g/dL (30.0-36.0) 04/20/22: RDW 14.9 % (12.1-15.1) 04/20/22 03: Plt Count 222 10^3/cmm (130-400) 04/20/22 03: MPV 10.4 fL (7.4-10.4) 04/20/22: Neut % (Auto) 65.4 % 04/20/22 03: Lymph % (Auto) 16.6 % 04/20/22 03: [place] % (Auto) 14.1 % 04/20/22: Eos % (Auto) 3.2 % 04/20/22 03: Baso % (Auto) 0.5 % 04/20/22 03: Neut # (Auto) 3.65 10^3/uL (1.8-7.7) 04/20/22 03: Lymph # (Auto) 0.9 10^3/uL (0.8-4.8) 04/20/22: [place] # (Auto) 0.8 10^3/uL (0.2-0.9) 04/20/22: Eos # (Auto) 0.2 10^3/uL (0.0-0.8) 04/20/22 03: Baso # (Auto) 0.0 10^3/uL (0.0-0.1) 04/20/22: Nucleated RBC % (auto) 0 % 04/20/22: Nucleated RBCs # 0.0 /100WBC 04/20/22 03: Sodium 141 mmol/L (136-145) 04/20/22 03: Potassium 3.2 mmol/L (3.5-5.1) L 04/20/22 03: Chloride 104 mmol/L (98-107) 04/20/22 03:28 Carbon Dioxide 30 mmol/L (22-29) H 04/20/22 03:28 Anion Gap 10.2 (5-19) 04/20/22 03:28 BUN 9 mg/dL (8-23) 04/20/22 03:28 Creatinine 0.7 mg/dL (0.5-0.9) 04/20/22 03:28 GFR Calculation Not Reportable 04/20/22 03:28 Glucose 89 mg/dL (65-115) 04/20/22 03:28 Calculated Osmolality 290 mOsm/kg (285-295) 04/20/22 03:28 Calcium 8.4 mg/dL (8.5-10.5) L 04/20/22 03:28 Magnesium 1.8 mg/dL (1.7-2.3) 04/20/22 03:28 Total Bilirubin 0.4 mg/dL (0.15-1.2) 04/19/22 16:05 AST 15 U/L (0-32) 04/19/22 16:05 ALT 10 U/L (0-33) 04/19/22 16:05 Alkaline Phosphatase 48 IU/L (35-105) 04/19/22 16:05 Troponin T Baseline 20 ng/L (0-10) H 04/19/22 16:05 Troponin T 120 Minute 25.80 ng/L (0-10) H 04/19/22 17:55 Delta Troponin T 5.80 ABS# (0-10) 04/19/22 17:55 C-Reactive Protein 3.0 mg/L (0.0-4.9) 04/20/22 03:28 Total Protein 6.1 g/dL (6.6-8.7) L 04/19/22 16:05 Albumin 3.8 g/dL (3.5-5.2) 04/19/22 16:05 Globulin 2.3 g/dL (1.3-4.6) 04/19/22 16:05 Lipase 21 U/L (13-60) 04/19/22 16:05 TSH 0.71 uIU/mL (0.27-4.20) 04/19/22 16:05 Free T4 1.61 ng/dL (0.82-1.77) 04/19/22 16:05 Vitals Last Vital Signs Temp 97.5 F L 04/20/22 08:00 Pulse 97 04/20/22 08:00 Resp 15 04/20/22 08:00 BP 149/86 04/20/22 08:00 Pulse Ox 90 04/20/22 08:00 Discharge Plan Discharge Patient Disposition: Home Condition: Stable Prescriptions: Continued terazosin 2 mg capsule 2 mg PO BID 0RF omega-3 fatty acids 1,000 mg capsule 1,000 mg PO BID 0RF docusate sodium [Colace] 100 mg capsule 100 mg PO BID PRN (Reason: Constipation) 0RF hydrocodone-acetaminophen 5-325 mg tablet 1 tab PO BID PRN (Reason: Pain) 0RF duloxetine 60 mg capsule,delayed release(DR/EC) 60 mg PO DAILY@12 0RF aspirin [Adult Low Dose Aspirin] 81 mg tablet,delayed release (DR/EC) 81 mg PO BEDTIME 0RF Hold Instructions: see primary care doctor before resuming furosemide 20 mg tablet 20 mg PO DAILY PRN (Reason: Edema) 0RF lisinopril 5 mg tablet 5 mg PO QAM 0RF trazodone 50 mg Tablet 50 mg PO BEDTIME PRN (Reason: Sleep) 0RF buspirone 30 mg tablet 30 mg PO BID 0RF diphenhydramine-acetaminophen [Tylenol PM Extra Strength] 25-500 mg Tablet 2 tab PO BEDTIME 0RF Centrum Women 18-400 mg-mcg Tablet 1 tab PO DAILY 0RF pantoprazole 40 mg tablet,delayed release (DR/EC) 40 mg PO BID 30 Days Qty: 60 2RF oxybutynin chloride 5 mg tablet 5 mg PO DAILY@12 0RF levothyroxine 137 mcg tablet 137 mcg PO QAM 0RF Vitamin B-12 50 mcg Tablet 50 mcg PO DAILY 0RF Vitamin C 500 mg Tablet 500 mg PO DAILY 0RF Vitamin D3 25 mcg (1,000 unit) Capsule 25 mcg PO DAILY 0RF Changed verapamil 240 mg capsule,ext rel. pellets 24 hr 240 mg PO DAILY Qty: 180 3RF Discharge Orders: Discharge Order (Routine); Ordered 04/20/22 Ordered By: Flor Cox Referrals: Zaki Garcia MD [Primary Care Provider] - 04/27/22 2:00 pm Discharge Diet: Cardiac Discharge Activity: Use walker/crutches as instructed Patient Instructions: Atrial Fibrillation, Verapamil (By mouth), Opioid Safety Discharge Attestations Time Spent in Discharge Care*: less than 30 min Status at Discharge: Cognitive status at discharge: cognitively intact, Behavioral status at discharge: cooperative, Quality Metrics Clinical Quality Measures [ No reported AMI, CVA or VTE this stay] Coding Level of Care Code Acute [facility] FW DC note Diagnoses Generalized weakness R53.1 Light headedness R42 Atrial fibrillation I48.91
[2022-04-20 10:01] VITALS: BP 132/68; PULSE 120; RESP 18; TEMP 36.6; O2SAT 98
--- NOTE | 2022-04-20 10:15 | PC.NURSE ---
patients heart rate is elevated. Patient was up to use bedside comode at this time
--- NOTE | 2022-04-20 10:18 | PC.NURSE ---
Pt had purple dress and was discharged with belongings.
== END 2022-04-20 10:28 | disposition home or self-care (01) ==
LOC: ER 17:24 → MEDSURG 19:43
PROVIDERS: Admitting Provider Internal Medicine; Emergency Provider Emergency Medicine; PCP Family Medicine; Visit Provider Internal Medicine
DX: R53.1 Weakness (principal); R42 Dizziness and giddiness; I48.91 Unspecified atrial fibrillation; Z79.82 Long term (current) use of aspirin; E78.5 Hyperlipidemia, unspecified; I11.0 Hypertensive heart disease with heart failure; I50.9 Heart failure, unspecified; J45.909 Unspecified asthma, uncomplicated
CPT/HCPCS: 36415; 70450; 71045; 80048; 80053; 83690; 83735; 84439; 84443; 84484; 85025; 86140; 93005; 96361; 96374; 99285; G0378; J3490; J7040

== ENCOUNTER → 2022-05-20 13:26 | Outpatient (BNVA) | payer MEDICARE, MEDICAID, SELFPAY | PROVIDERS: PCP Family Medicine; Visit Provider Surgery | DX: K57.90 Diverticulosis of intestine, part unspecified, without perforation or abscess without bleeding (principal); K29.70 Gastritis, unspecified, without bleeding; K63.5 Polyp of colon | CPT/HCPCS: 99213 ==